=== PATIENT | male | born 1955 | race Caucasian/White ===

== ENCOUNTER 2018-01-18 16:00 | Outpatient (RCR) | payer BC, SELFPAY ==
--- NOTE | 2018-01-12 09:43 | R_ITS ---
Date: January 11, 2018 Referring: Kvng Felton MD Diagnosis: Trochanteric bursitis L hip and lumbago PT diagnosis: Difficulty changing positions Subjective: History of Present Illness: Pt returns to the clinic after experiencing a change in status. He was actually gone from the clinic due to receiving surgery with aortic repair and bilateral arterial bypass through the LEs. He had been having intermittent claudication through the LEs, and that then turned into constant arterial flow disorders. He was in constant pain, and it may have also been contributing to some of his hip pain as well. His activity tolerance was significantly reduced. He received the surgery and was in the hospital for a week and has since returned to some of his daily activities. He just recently had the justine removed and he returns to the clinic to see where he is at in terms of his functional status and to restart his therapy. Pain Ratin/10 mainly through the R hip. Prior Level of Function: Unrestricted in his activities but with significant pain that was limiting his involvement and duration in activity time. Current Level of Function: Walking with much more ease. Previous Treatment: PT before surgery. Social: He lives in [place] with his . Comorbidities: History of hypertension, new recent surgery for aortic repair and bilateral arterial bypass in the LEs. History of shoulder surgery. Medications: Have been reviewed. You can observe EMR for full details. QOL: Good. Standardized Measures: Was not completed in lieu of actual standardized testing , which is much more applicable for this pt demographic. Objective: Posture: In standing pt demonstrates no significant postural abnormality. Gait: Unremarkable, other than a slight antalgia through the R side attributed to some of his latent hip pain. Palpation: Mild tenderness to palpation through the surgical incision area. He has an 11 in. incision running the course of his abdomen and 2 bilateral incisions through the top of the medial aspect of the hip running down the anterior of the thigh. They are all well healed, approximated edges. No sign of erythema. An SFMA top tier assessment was completed. Dysfunctional nonpainful pattern through shoulder UE 1, UE 2 patterns, multi-segmental extension arms down deep squat and single leg stance. ROM: Measurements for this pt are as follows: Hip flexion 120 degrees flexion bilaterally IR 35 degrees rotation bilaterally ER 45 degrees bilaterally Hip abduction 45 degrees bilaterally Knee extension WNL Knee flexion WNL. Strength: Measurements for this pt are as follows: Hip flexion 4+/5 bilaterally Quads 5/5 Hamstrings 5/5 Dorsiflexion 5/5 Plantar flexion 5/5 Glute medius 4/5 bilaterally Neuro: Pt intact to light touch and sensation through UE and LE dermatomes. Motor control appears intact through associated myotomes and pt demonstrates appropriate proprioception and kinesthetic awareness. Special Tests: 6 min walk test pt traveled 1196 ft. 30 sec. sit to stand he completed 15 reps. 8 lb. arm curl test pt completes 19 reps bilaterally. Treatment: Re-evaluation only as this was done as a means to gauge his functional level prior to re-instating his therapeutic protocol. Treatment Time: 30 min direct pt care Assessment: Pt is a 62 yo male with a history of good physical health. He has initially been referred to PT with a diagnosis of troch bursitis at the L hip and also lumbago.He presents today with signs and symptoms consistent with being s/p aortic repair and bilateral arterial bypass through the LE's, on top of his existing PT diagnosis of mechanical derangement and dysfunction through the L hip. This is evidenced by the following impairment level findings: 6 min. 1196 ft, 15 reps for 30 sec. sit to stand, 19 reps through use of arm curl test of 8 lbs. and he is having some weakness through the gluteals at 4/5. These are contributing to the following functional limitations: mild deficits with long distance walking. Pt assessed as LOW complexity [id number] based on the following: History: recent arterial surgery, shoulder surgery, high blood pressure. Examination: 1196 ft. 6 min walk test distance, 15 reps. 30 sec. sit to stand , 19 reps. 30 sec. arm curl test with 8 lbs, weakness through gluteals with 4/5 strength bilaterally. Presentation: Stable. Decision making: Low based on the battery of standardized measures that were taken that indicated pt is at a good functional status right now. He definitely has some slight decline in what would be considered normal for his age demographic. PT services are required for this pt in order to address and remediate his functional limitations and return him to premorbid level of function. Pt prognosis appears to be good as evidence suggests improvement of functional mobilities with compliance to a detailed HEP tailored to his diagnosis and following through with PT intervention. STG: Patient to demonstrate the following in 2 weeks: 1. Pt will be independent in HEP both verbally and with ideal technique demonstration. LTG: Patient to demonstrate the following in 6 weeks: 1. Pt able to walk a mile within 20 min. with normalized gait mechanics and no evidence of pain. Plan: Patient to be seen 1 times per week for 6 weeks, with tapering visits as symptoms improve. Interventions will mainly consist of therapeutic exercise providing tactile cues, verbal education and advanced movement correctives for establishing muscle symmetry and improved stability and motor control through the core and pelvic girdle, as well as improved cardiovascular conditioning. Manual therapy will be utilized for enhancing muscle extensibility and improving joint arthrokinematics. Ultrasound and e-stim available for pain modulation as necessary. The pt will be monitored for compliance to HEP and pts status will be updated accordingly. Plan may be modified as symptoms dictate. YANNI/keith
--- NOTE | 2018-01-18 17:01 | PTTR_ITS ---
DATE: 01/18/18 SUBJECTIVE: I am doing pretty well for the most part. OBJECTIVE: Therapeutic procedures ([id number]). * X HEP review: Technique review and corrective modification where appropriate. * X See flow sheet: Patient tolerated treatment well with corrective instruction * X Provided skilled instruction in proper exercise performance: [] * X Provided skilled manual cues to facilitate proper muscle recruitment and/ or movement pattern: [] Direct treatment time: 30 minutes of direct patient care.
== END 2018-01-19 23:59 | disposition home or self-care (01) ==
LOC: PT 16:00
PROVIDERS: PCP Family Medicine; Referring Provider Family Medicine; Visit Provider Family Medicine
DX: M25.552 Pain in left hip (principal); M54.5 Low back pain; M79.89 Other specified soft tissue disorders
CPT/HCPCS: 97110; 97164

== ENCOUNTER 2018-10-23 01:56 | Outpatient (CLI) | payer BC, SELFPAY ==
[2018-10-23 07:23] LABS: HCT 47.7 % (40.0-50.0); HGB 16.3 g/dL (13.5-17.5); Mean Corp. HGB Concentration 34.2 g/dL (32.0-36.0); Mean Corpuscular Volume 99.4 fL (80-95); Mean Platelet Volume 9.1 fL (8.0-11.0); Platelet Count 146 x1000/uL (130-400); RBC Distribution Width 13.3 % (11.8-14.1); White Blood Cell Count 6.84 k/cumm (4.4-10.8)
[2018-10-23 07:55] LABS: ALT 25 U/L (12-78); AST 16 U/L (15-37); Albumin 4.2 g/dL (3.4-5.0); Alkaline Phosphatase 66 U/L (46-116); Anion Gap 10.1 mmol/L (3-11); BUN 17 mg/dL (7-18); Bilirubin, Total 0.9 mg/dL (0.2-1.0); CO2 26.9 mmol/L (21.0-32.0); CREATININE 1.08 mg/dL (0.70-1.30); Calculated LDL 69; Chloride 103 mmol/L (98-107); Cholesterol 156 mg/dL (50-200); Glucose 108 mg/dL (70-100); HDL Cholesterol 53 mg/dL (40-60); Sodium 140 mmol/L (136-145); Total Protein 7.3 g/dL (6.4-8.2); Triglyceride 171 mg/dL (30-150)
[2018-10-23 08:04] LABS: C-Reactive Protein 0.07 mg/dL (0.0-0.3)
[2018-10-24 11:41] LABS: Rheumatoid Factor 8 IU/mL (<12.5)
== END 2018-10-23 02:16 ==
PROVIDERS: PCP Family Medicine; Visit Provider Family Medicine
DX: E78.5 Hyperlipidemia, unspecified (principal); I10 Essential (primary) hypertension; M19.049 Primary osteoarthritis, unspecified hand
CPT/HCPCS: 36415; 80053; 80061; 83721; 85027; 86140; 86431

== ENCOUNTER 2019-11-18 20:40 | Outpatient (REF) | payer BC, SELFPAY ==
[2019-11-18 21:41] LABS: ALT 53 U/L (16-63); AST 33 U/L (15-37); Albumin 4.2 g/dL (3.4-5.0); Alkaline Phosphatase 50 U/L (46-116); BUN 15 mg/dL (7-18); Bilirubin, Total 0.6 mg/dL (0.2-1.0); CREATININE 1.06 mg/dL (0.70-1.30); Calcium 9.1 mg/dL (8.5-10.1); Calculated LDL 40 mg/dL (<100); Chloride 104 mmol/L (98-107); Cholesterol 97 mg/dL (<200); Glucose 130 mg/dL (74-106); HDL Cholesterol 36 mg/dL (40-60); Potassium 3.5 mmol/L (3.5-5.1); Sodium 140 mmol/L (136-145); Total Protein 6.9 g/dL (6.4-8.2); Triglyceride 107 mg/dL (<150)
== END 2019-11-18 21:00 ==
LOC: LBN 20:40
PROVIDERS: PCP Family Medicine; Visit Provider Family Medicine
DX: Z00.00 Encounter for general adult medical examination without abnormal findings (principal); Z13.228 Encounter for screening for other metabolic disorders; Z13.220 Encounter for screening for lipoid disorders
CPT/HCPCS: 80053; 80061

== ENCOUNTER 2020-05-19 00:59 | Outpatient (CLI) | payer BC, SELFPAY ==
--- NOTE | 2020-05-19 07:54 | DI.RAD_ITS ---
EXAM: XR HIP PELVIS ADULT BL CLINICAL HISTORY: bilat hip pain,m25.552,m25.551. TECHNIQUE: 2D digital imaging was performed. COMPARISON: No exams were available for comparison FINDINGS: Hardware is noted in the lower lumbar spine. Laminectomy defect is seen at L5. The hip joint spaces are well maintained. No significant periarticular spurring. Vascular calcifications are seen.. IMPRESSION: Unrmarkable radiographs of bilat hips. Postsurgical changes in the lower lumbar spine. DATA REPOSITORY: RADIATION DOSE DELIVERED:
--- NOTE | 2020-05-20 16:13 | CHAPLAIN ---
I visited with Gregg as he was getting ready to be discharged. He said his PCP suggested he come an get checked out because of chest pains. He's waiting for his to pick him up.
== END 2020-05-19 01:19 ==
PROVIDERS: PCP Family Medicine; Visit Provider Physician Assistant
DX: M25.551 Pain in right hip (principal); M25.552 Pain in left hip
CPT/HCPCS: 73521

== ENCOUNTER 2020-05-19 11:34 | Observation (INO) | payer BC, SELFPAY ==
[2020-05-19] VITALS (85 sets, daily range): BP systolic 111–176; BP diastolic 49–122; PULSE 51–90; RESP 12–23; TEMP 36.6–37.2; O2SAT 91–100
--- NOTE | 2020-05-19 11:30 | RT.EKG_ITS ---
APPROVED REPORT Exam: Resting ECG Patient Location: E HR:65 bpm ECG Measurements Heart Rate 65 AXIS GA 175 P -15 QRSd 105 QRS 12 QT 397 T -1 QTc 414 Conclusion Sinus rhythm...normal P axis, V-rate 60- 99 Inferior infarct, old...Q >35mS, II III aVF Physician: Rate 65, intervals normal, sinus rhythm, no significant ST elevations or depressions, ther e is new inverted T wave in lead III and a Q wave in lead III and aVF. Unchanged from prior EKG in 2 015 aside for slight increasing height of QRS complex in V3 and V4 and V5 compared to prior EKGs. No signs of STEMI.
[2020-05-19] MEDS: nitroGLYcerin 0.4 MG TAB (11:52)
--- NOTE | 2020-05-19 11:52 | W.ED.GENAD ---
Discharge Plan Disposition Patient Disposition: [facility] INPATIENT Condition: Good Discharge Details Chief Complaint: Chest Pain Clinical Impression: Chest pain, Chest pain, exertional Primary Care Provider: Kvng Felton ED Provider: Crow Sparks Home Meds and New Rx's Prescriptions: No Action fluticasone propionate [Flonase Allergy Relief] 50 mcg/actuation spray,suspension 1 spray BECKY DAILY RF: 0 acetaminophen [Tylenol Extra Strength] 500 MG tablet 500 mg PO TID RF: 0 metoprolol tartrate 50 mg tablet 25 mg PO BID RF: 0 atorvastatin [Lipitor] 20 mg tablet 80 mg PO DAILY RF: 0 aspirin 81 mg Tablet 81 mg PO DAILY RF: 0 Medical Decision Making 65-year-old female with a past medical history of a quadruple bypass around 2014, GERD, hypertension, high cholesterol, chronic kidney disease, aorto bifemoral bypass, notable peripheral artery disease presents today for evaluation of chest pain and shortness of breath. Patient states that starting yesterday while doing some light electrical work he developed mild chest pressure which she describes as achy in nature as well as dull. Chronic left arm pain is present however it is unchanged with his new chest pain. He denies any tearing or ripping sensation. He does admit to an intermittent cough, but he does admit some mild shortness of breath. Patient states when he gets up walks around and performs activities it worsens his symptoms, improves when he sits and rest. He states his symptoms feel similar to his previous episodes when he had his quadruple bypass. He denies any numbness tingling or weakness. He denies any trauma. He has not smoked for years. He denies any fever or chills. No other complaints at this time. No other modifying factors. Patient appears hypertensive, heart rate stable. Radial pulses equal bilaterally. No significant abnormalities on physical exam, no calf tenderness. EKG shows no signs of STEMI, unchanged from prior EKG of 5 for slight evidence of ventricular hypertrophy. Nitroglycerin was administered and he had notable improvement of his symptoms, symptoms came back shortly thereafter and he was started on nitroglycerin drip. Do feel that the patient would benefit from cardiac evaluation, with his history of AAA, peripheral vascular disease, I do feel that PE and more importantly mild dissection is also on the differential. We will get CTA once labs return. Additionally the patient did take 3 baby aspirin prior to arrival, we will give him his fourth. 3:55 PM Laboratory work-up has returned, serial troponins and serial EKGs are normal, pain has resolved on the nitro drip, we will transition to nitro ointment. No signs of heart strain with an unremarkable proBNP, electrolytes normal. CTA negative for acute process. With the patient's chest pain, resolved with nitroglycerin, history of cardiac disease, CABG, and is history of being a vasculopath, I do feel that continued admission and stress test are indicated for the patient with this high risk and concerning history. Discussed the case with Katlyn Wilder, she agrees with the plan. She will place admission orders. Patient will be admitted to the floor. I have extensively reviewed the treatment plan with the patient. I have addressed all patient concerns at this time. I have also discussed the plan with the admitting physician and they agree with the current assessment and plan and have agreed to assume responsibility for the patient. All parties demonstrate verbal understanding and agreement with our assessment and plan at this time. EKG 11: 46 Rate 65, intervals normal, sinus rhythm, no significant ST elevations or depressions, there is new inverted T wave in lead III and a Q wave in lead III and aVF. Unchanged from prior EKG in 2015 aside for slight increasing height of QRS complex in V3 and V4 and V5 compared to prior EKGs. No signs of STEMI. FINDINGS: Pulmonary Arteries: Well opacified with IV contrast no evidence of filling defect to suggest pulmonary emboli. Tracheobronchial tree: Patent where visualized. Mediastinum and Dayna: No dominant adenopathy or fluid collection. Pulmonary parenchyma: No consolidation or dominant measurable mass. Pleura: No effusion or pneumothorax. Heart: The heart is mildly dilated. coronary artery calcifications are seen. Status post CABG. Aorta: Atherosclerotic changes. No evidence of dissection. 4 cm maximal diameter. Upper abdomen: Hepatic steatosis. Question of small hiatal hernia. Bones: Sternal wires. Degenerative disc changes. Old right rib fractures. No acute fracture. IMPRESSION: No evidence of pulmonary embolism or aortic dissection. No acute abnormality.. HPI General Date/Time Provider Initiated Documentation: 05/19/20 11:35. HPI Narrative: 65-year-old female with a past medical history of a quadruple bypass around 2014, GERD, hypertension, high cholesterol, chronic kidney disease, aorto bifemoral bypass, notable peripheral artery disease presents today for evaluation of chest pain and shortness of breath. Patient states that starting yesterday while doing some light electrical work he developed mild chest pressure which she describes as achy in nature as well as dull. Chronic left arm pain is present however it is unchanged with his new chest pain. He denies any tearing or ripping sensation. He does admit to an intermittent cough, but he does admit some mild shortness of breath. Patient states when he gets up walks around and performs activities it worsens his symptoms, improves when he sits and rest. He states his symptoms feel similar to his previous episodes when he had his quadruple bypass. He denies any numbness tingling or weakness. He denies any trauma. He has not smoked for years. He denies any fever or chills. No other complaints at this time. No other modifying factors. Related Data Home Medications Medication Instructions Recorded Confirmed acetaminophen [Tylenol Extra 500 mg PO TID 09/01/17 05/19/20 Strength] atorvastatin 20 mg tablet 80 mg PO DAILY tab 10/17/18 05/19/20 metoprolol tartrate 50 mg tablet 25 mg PO BID tab 10/17/18 05/19/20 fluticasone propionate 50 1 spray BECKY DAILY 11/18/19 05/19/20 mcg/actuation nasal spray,suspension aspirin 81 mg PO DAILY 05/19/20 05/19/20 Allergies Allergy/AdvReac Type Severity Reaction Status Date / Time No Known Allergies Allergy Verified 05/19/20 12:02 Review of Systems All systems reviewed & are unremarkable except as noted in HPI and below PFSH Surgical History DISKECTOMY LAMINECTOMY,DISKECTOMY,ARTHRODESIS WITH BONE GRAFT;11/06/13; Heart Bypass quadruple 01/03 [facility] [place] L2 LAMINECTOMY 10/30/13 DR. MENDOZA AT ;FOR STENOSIS DECOMPRESSION Rotator Cuff Repair (~07/2016) LEFT SHOULDER Spinal Fusion L 4-5 LAMONECTOMY AND FUSION 04/22/09 DR. LIU Tonsillectomy AGE 7 Family History Mother No problems noted. Father , 68 Essential hypertension Heart disease Hyperlipidemia Sister No problems noted. Brother No problems noted. Brother Hypertension Hyperlipidemia Maternal Grandfather , 70+ No problems noted. Paternal Grandfather , 50 Alcohol abuse Maternal Grandmother , 90+ No problems noted. Paternal Grandmother , 90+ No problems noted. Son No problems noted. Son No problems noted. Daughter No problems noted. Daughter No problems noted. Social History Smoking/Tobacco Use Status: Current-Occasional Tobacco: How many years used: 25 Smoking risk assessment performed?: Yes Alcohol Intake: current Alcohol Intake frequency: 0-2 drinks per day Alcohol type: hard liquor Drug use: Rarely Substance use type: does not use Caregiver/Support person: No Household members: spouse Housing: house Communication Needs: None Do you need help understanding health information?: Never Pets and animals: Yes Pets and animals: cat(s) Sexually active: Yes Do you think of yourself as: straight/heterosexual Current gender identity: male What is your relationship status?: How often do you talk on the phone with friends or family?: twice per week How often do you get together with friends or relatives?: once per week How often do you attend rastafarian or sikh services?: 1-3 times per year Do you belong to any clubs or organized social groups?: no Panel score (0-1 are the most socially isolated patients): 2 What type of physical activity do you participate in: walking Duration: 30-45 minutes/day Frequency: 1-2 times per week Adriana/Baptism: Episcopalian Special adriana needs: No Seatbelt use: sometimes Helmet use: Yes Helmet use: always Drive intox or ride w/intox mobile lounge driver: No Do you feel safe at home: Yes Do you feel safe in your relationship?: Yes Exam Narrative Exam Narrative: 1.Const: Well-nourished, Well-developed, appearing stated age 2.Eyes: PERRL, no conjunctival injection, and symmetrical lids. 3.ENT: Atraumatic external nose and ears. Moist MM. Neck: Symmetric, trachea midline, No thyromegaly. 4.CVS: +S1/S2, No murmurs or gallops. Peripheral pulses 2+ and equal in all extremities. Brisk capillary refill in all extremities. Radial pulses +2 bilaterally. 5.RESP: Unlabored respiratory effort. Clear to auscultation bilaterally. No wheezes rales or rhonchi 6.GI: Soft, Nontender/Nondistended, No hepatosplenomegaly. No guarding or rebound. 7.MSK: Normocephalic/Atraumatic, Extremities w/o deformity or ttp No cyanosis or clubbing, Normal movement of all extremities, no calf tenderness. 8.Skin: Warm, Dry. No rashes or lesions. 9.Neuro: x ray tech II-XII grossly intact. Sensation grossly intact, no focal neurologic deficits. 10.Psych: (AAO) x3. Appropriate mood and affect
[2020-05-19 12:03] LABS: Abs Immature Grans 0.04 10^3/uL (0.0-0.06); Absolute Basophil Count 0.08 10^3/uL (0.0-0.2); Absolute Eosinophil Count 0.01 10^3/uL (0.0-0.7); Absolute Lymphocyte Count 1.75 10^3/uL (1.2-3.4); Absolute Neutrophil Count 4.59 10^3/uL (1.2-6.7); Basophils % 1.1; Eosinophils % 0.1; HCT 45.2 % (40.0-50.0); HGB 15.4 g/dL (13.5-17.5); Immature Grans % 0.6; Lymphocytes % 24.4; MCH 34.5 pg (27.0-33.0); MCHC 34.1 % (32.0-36.0); MCV 101.1 fL (80-95); Monocytes % 9.8; Nucleated RBC 0 %; Platelet Count 134 10^3/uL (130-400); RBC 4.47 10^6/uL (4.36-5.78); RDW 12.3 % (11.8-14.1); RDW-SD 46.3 fL; WBC 7.17 10^3/uL (4.4-10.8)
[2020-05-19 12:19] LABS: PTT Activated 21.4 sec (21.0-27.5); Prothrombin Time 10.5 sec (9.3-11.0)
[2020-05-19] MEDS: Aspirin 81 MG CHEW CH (12:20)
[2020-05-19 12:23] LABS: ALT 82 U/L (16-63); AST 69 U/L (15-37); Albumin 4.9 g/dL (3.4-5.0); Alkaline Phosphatase 54 U/L (46-116); Anion Gap 14.7 mmol/L (3-11); BUN 14 mg/dL (7-18); Bilirubin, Total 0.9 mg/dL (0.2-1.0); CO2 25.3 mmol/L (21.0-32.0); CREATININE 1.14 mg/dL (0.70-1.30); Chloride 98 mmol/L (98-107); Glucose 82 mg/dL (74-106); NT-proBNP 446 pg/mL (<300); Potassium 3.8 mmol/L (3.5-5.1); Sodium 138 mmol/L (136-145); Troponin I < 0.05 ng/mL (<0.06)
[2020-05-19] MEDS: Omnipaque 350 MG/ML 100 ML BTL IJ (13:11)
[2020-05-19] MEDS: Normal Saline - Diluent 50 ML VIAL IV (13:12)
--- NOTE | 2020-05-19 13:16 | DI.CT_ITS ---
EXAM: CT THORAX CTA CLINICAL HISTORY: chest pain, r/o PE/dissection. TECHNIQUE: Imaging Protocol: Axial CT angiography was performed with multi-slice acquisition and mu lti-planar and/or 3D reconstructions. CONTRAST MATERIAL: Intravenous: Omnipaque 350 Contrast volume:100 ml COMPARISON: No exams were available for comparison FINDINGS: Pulmonary Arteries: Well opacified with IV contrast no evidence of filling defect to suggest pulmonar y emboli. Tracheobronchial tree: Patent where visualized. Mediastinum and Dayna: No dominant adenopathy or fluid collection. Pulmonary parenchyma: No consolidation or dominant measurable mass. Pleura: No effusion or pneumothorax. Heart: The heart is mildly dilated. coronary artery calcifications are seen. Status post CABG. Aorta: Atherosclerotic changes. No evidence of dissection. 4 cm maximal diameter. Upper abdomen: Hepatic steatosis. Question of small hiatal hernia. Bones: Sternal wires. Degenerative disc changes. Old right rib fractures. No acute fracture. IMPRESSION: No evidence of pulmonary embolism or aortic dissection. No acute abnormality.. RADIATION DOSE DELIVERED: 358.54mGy.cm Total DLP DATA REPOSITORY: All CT scans at this facility are submitted to the National Radiology Data Registry (NRDR) Dose Index Registry (DIR) with the [employer] (ACR). RADIATION OPTIMIZATION: All CT scans at this facility use at least one of these dose optimization te chniques: automated exposure control; mA and/or kV adjustment per patient size (includes targeted exa ms where dose is matched to clinical indication); or iterative reconstruction.
--- NOTE | 2020-05-19 14:45 | RT.EKG_ITS ---
APPROVED REPORT Exam: Resting ECG Patient Location: E HR:58 bpm ECG Measurements Heart Rate [address] 191 P -21 QRSd 95 QRS 14 QT 420 T 5 QTc 413 Conclusion Sinus bradycardia...rate< 60 Inferior infarct, old...Q >35mS, II III aVF I have reviewed and interpreted ECG and agree with software generated interpretation. PHysician: Allison rodriguez, unchanged from prior ekg
[2020-05-19 15:15] LABS: Troponin I < 0.05 ng/mL (<0.06)
[2020-05-19] MEDS: nitroGLYcerin 2% 1 INCH/1 GM PKT TP ×3 (15:32→23:40)
--- NOTE | 2020-05-19 16:54 | HPE_ITS ---
Date of service: 05/19/20 Time of Service: 16:54 Assessment and Plan Assessment and plan (1) Chest pain: Status: Acute Assessment and plan: referred to observation. cycle troponins, 2 sets negative now with no acute ST segment changes responded to nitro, will continue nitro paste overnight due to stress component will add protonix and prn ativan overnight NM stress test scheduled for tomorrow morning, will be NPO after midnight. hold betablocker. (2) CAD (coronary artery disease): Status: Acute Assessment and plan: continue asa and statin, BB on hold d/t stress test scheduled for am (3) Essential hypertension: Status: Acute Assessment and plan: will resume BB after stress test, monitor (4) Hyperlipidemia: Status: Acute Assessment and plan: continue statin (5) Emotional Distress: Status: Acute Assessment and plan: ativan prn overnight. ambien and melatonin for sleep. long history of alcohol abuse. discussed with DR Mckeon History of Present Illness History of Present Illness Chief Complaint: chest pain Narrative: patient presents to the ED with a 2 day history sub-sternal chest pressure, states he has had a lot of stress all week, he reports he has not had any chest pain since his bypass in 2014. he received nitroglycerin in the ED that relieved his pain. he has had 2 negative troponins and no acute EKG changes. he is being referred to observation and will have a stress test tomorrow Review of Systems Constitutional Constitutional: Reports difficulty sleeping and Denies fever(s) Eyes Eyes: Denies change in vision ENT Ears, Nose, Mouth, and Throat: Denies vertigo and Denies dizziness Cardiovascular Cardiovascular: Reports chest pain, Denies rapid heart rate and Denies leg edema Respiratory Respiratory: Denies chest congestion and Denies cough Gastrointestinal Gastrointestinal: Denies abdominal pain, Denies nausea and Denies vomiting Genitourinary Genitourinary: Denies difficulty urinating Integumentary/Breasts Skin/Breast: Denies lesions Neurologic Neurologic: Denies confusion, Denies vertigo and Denies dizziness Psychiatric Psychiatric: Reports anxiety, Denies confusion, Denies homicidal ideation and Denies suicidal ideation Comments: lots of recent stress-this week [facility] Surgical History DISKECTOMY LAMINECTOMY,DISKECTOMY,ARTHRODESIS WITH BONE GRAFT;11/06/13; Heart Bypass quadruple 01/03 [facility] [place] L2 LAMINECTOMY 10/30/13 DR. MENDOZA AT ;FOR STENOSIS DECOMPRESSION Rotator Cuff Repair (~07/2016) LEFT SHOULDER Spinal Fusion L 4-5 LAMONECTOMY AND FUSION 04/22/09 DR. LIU Tonsillectomy AGE 7 Family History Mother No problems noted. Father , 68 Essential hypertension Heart disease Hyperlipidemia Sister No problems noted. Brother No problems noted. Brother Hypertension Hyperlipidemia Maternal Grandfather , 70+ No problems noted. Paternal Grandfather , 50 Alcohol abuse Maternal Grandmother , 90+ No problems noted. Paternal Grandmother , 90+ No problems noted. Son No problems noted. Son No problems noted. Daughter No problems noted. Daughter No problems noted. Social History Smoking/Tobacco Use Status: Current-Occasional Tobacco: How many years used: 25 Smoking risk assessment performed?: Yes Alcohol Intake: current Alcohol Intake frequency: 0-2 drinks per day Alcohol type: hard liquor Drug use: Rarely Substance use type: does not use Caregiver/Support person: No Household members: spouse Housing: house Communication Needs: None Do you need help understanding health information?: Never Pets and animals: Yes Pets and animals: cat(s) Sexually active: Yes Do you think of yourself as: straight/heterosexual Current gender identity: male What is your relationship status?: How often do you talk on the phone with friends or family?: twice per week How often do you get together with friends or relatives?: once per week How often do you attend protestant or mandaen services?: 1-3 times per year Do you belong to any clubs or organized social groups?: no Panel score (0-1 are the most socially isolated patients): 2 What type of physical activity do you participate in: walking Duration: 30-45 minutes/day Frequency: 1-2 times per week Adriana/Rastafari: Cheondoism Special adriana needs: No Seatbelt use: sometimes Helmet use: Yes Helmet use: always Drive intox or ride w/intox haulpak driver: No Do you feel safe at home: Yes Do you feel safe in your relationship?: Yes Meds Home Medications and Allergies Home Medications Medication Instructions Recorded Confirmed Type acetaminophen [Tylenol Extra 500 mg PO TID 09/01/17 05/19/20 History Strength] atorvastatin 20 mg tablet 80 mg PO DAILY tab 10/17/18 05/19/20 History metoprolol tartrate 50 mg tablet 25 mg PO BID tab 10/17/18 05/19/20 History fluticasone propionate 50 1 spray BECKY DAILY 11/18/19 05/19/20 History mcg/actuation nasal spray,suspension aspirin 81 mg PO DAILY 05/19/20 05/19/20 History Allergies Allergy/AdvReac Type Severity Reaction Status Date / Time No Known Allergies Allergy Verified 05/19/20 12:02 Exam Const General: cooperative, anxious, ill appearing chronically and other (flushed face) Nutritional Appearance: overweight Orientation: alert, awake and oriented x3 HENMT Head: normal to inspection, normocephalic and atraumatic Mouth: oral mucosae normal Chest Chest: normal inspection of the chest Resp Effort & Inspection: normal respiratory effort Auscultation: clear to auscultation bilaterally Cardio Rate: regular rate Rhythm: regular rhythm GI Inspection: normal to inspection Palpation: soft Auscultation: normal bowel sounds Skin General skin exam: no rashes or lesions noted Lesions: no lesions Rashes: no rashes Neuro General: patient alert, patient awake, patient oriented x3 and moves all extremities Cranial Nerves: CN's II-XI intact bilaterally Extrem General: normal to inspection and full ROM Results Labs Result diagrams: 05/19/20 11:50 05/19/20 11:50 Labs: Laboratory Results - last 24 hr 05/19/20 05/19/20 05/19/20 11:50 11:50 11:50 WBC 7.17 RBC 4.47 Hgb 15.4 Hct 45.2 MCV 101.1 H MCH 34.5 H MCHC 34.1 RDW 12.3 Plt Count 134 MPV 9.0 Immature Gran % 0.6 Neutrophils % 64.0 Lymphocytes % 24.4 Monocytes % 9.8 Eosinophils % 0.1 Basophils % 1.1 Nucleated RBC % 0 Absolute Neutrophils 4.59 Absolute Lymphocytes 1.75 Absolute Monocytes 0.70 Absolute Eosinophils 0.01 Absolute Basophils 0.08 PT 10.5 INR 1.0 APTT 21.4 Sodium 138 Potassium 3.8 Chloride 98 Carbon Dioxide 25.3 Anion Gap 14.7 H BUN 14 Creatinine 1.14 Estimated GFR/1.73 m2 >= 60.00 Glucose 82 Calcium 10.0 Total Bilirubin 0.9 AST 69 H ALT 82 H Alkaline Phosphatase 54 Troponin I < 0.05 NT-Pro-B Natriuret Pep 446 H Total Protein 8.0 Albumin 4.9 05/19/20 14:47 WBC RBC Hgb Hct MCV MCH MCHC RDW Plt Count MPV Immature Gran % Neutrophils % Lymphocytes % Monocytes % Eosinophils % Basophils % Nucleated RBC % Absolute Neutrophils Absolute Lymphocytes Absolute Monocytes Absolute Eosinophils Absolute Basophils PT INR APTT Sodium Potassium Chloride Carbon Dioxide Anion Gap BUN Creatinine Estimated GFR/1.73 m2 Glucose Calcium Total Bilirubin AST ALT Alkaline Phosphatase Troponin I < 0.05 NT-Pro-B Natriuret Pep Total Protein Albumin Last Vital Signs Temp 37.2 C 05/19/20 16:51 Pulse 87 05/19/20 16:51 Resp 18 05/19/20 16:51 BP 166/93 H 05/19/20 16:51 Pulse Ox 97 05/19/20 16:51 COVID-19 Screening Have you, or household traveled for leisure in last 14 days?: No Had IN PERSON contact w/suspected or confirmed C-19 person: No
[2020-05-19] MEDS: LORazepam 0.5 MG TAB PO (17:42)
[2020-05-19] MEDS: Pantoprazole 40 MG VIAL IVP (17:42)
[2020-05-19] MEDS: Acetaminophen 325 MG TAB 650 MG PO (17:42)
[2020-05-19] MEDS: Normal Saline Flush 10 ML SYR (17:43)
[2020-05-19] MEDS: Atorvastatin 40 MG TAB 80 MG PO (21:17)
[2020-05-19] MEDS: Zolpidem 5 MG TAB PO (21:17)
[2020-05-19] MEDS: Melatonin 3 MG TAB PO (21:17)
[2020-05-19 22:00] LABS: COVID-19 RT-PCR UVMMC Result Negative (Negative)
[2020-05-19 22:29] LABS: Troponin I 0.05 ng/mL (<0.06)
[2020-05-20 06:42] LABS: Abs Immature Grans 0.02 10^3/uL (0.0-0.06); Absolute Basophil Count 0.04 10^3/uL (0.0-0.2); Absolute Eosinophil Count 0.07 10^3/uL (0.0-0.7); Absolute Lymphocyte Count 1.46 10^3/uL (1.2-3.4); Absolute Monocyte Count 0.77 10^3/uL (0.1-0.8); Absolute Neutrophil Count 4.25 10^3/uL (1.2-6.7); Basophils % 0.6; Eosinophils % 1.1; HGB 14.4 g/dL (13.5-17.5); Immature Grans % 0.3; Lymphocytes % 22.1; MCHC 34.3 % (32.0-36.0); MCV 101.9 fL (80-95); MPV 9.2 fL (8.0-11.0); Monocytes % 11.6; Neutrophils % 64.3; Nucleated RBC 0 %; Platelet Count 113 10^3/uL (130-400); RBC 4.12 10^6/uL (4.36-5.78); RDW 12.5 % (11.8-14.1); WBC 6.61 10^3/uL (4.4-10.8)
[2020-05-20 07:01] LABS: ALT 62 U/L (16-63); AST 43 U/L (15-37); Albumin 3.8 g/dL (3.4-5.0); Alkaline Phosphatase 48 U/L (46-116); Anion Gap 8.3 mmol/L (3-11); BUN 16 mg/dL (7-18); Bilirubin, Total 0.8 mg/dL (0.2-1.0); CO2 26.7 mmol/L (21.0-32.0); CREATININE 0.97 mg/dL (0.70-1.30); Calcium 8.8 mg/dL (8.5-10.1); Chloride 104 mmol/L (98-107); Glucose 106 mg/dL (74-106); Magnesium 1.8 mg/dL (1.8-2.4); Potassium 3.8 mmol/L (3.5-5.1); Sodium 139 mmol/L (136-145); Total Protein 6.7 g/dL (6.4-8.2); Troponin I < 0.05 ng/mL (<0.06)
[2020-05-20 07:10] VITALS: BP 130/81; PULSE 64; RESP 17; TEMP 37.2; O2SAT 97
[2020-05-20 07:25] VITALS: PULSE 80
--- NOTE | 2020-05-20 07:29 | DI.US_ITS ---
APPROVED REPORT EXAM: Comprehensive 2D, Doppler, and color-flow Echocardiogram Patient Location: In-Patient Room/Bed: [facility] Physical Therapy Technician: Maricruz Roa RDCS (AE) Indications: Chest pain, CAD, CABG Other Information Study Quality: Adequate Conclusion The left ventricular wall thickness and chamber size. Estimated ejection fraction is 55 to 60%. The re are no segmental wall motion abnormalities Normal right ventricular size and systolic function Both atria are normal in size Trileaflet aortic valve with trace regurgitation Structurally normal mitral, tricuspid, and pulmonic valves Trace mitral regurgitation. Mild tricuspid regurgitation with normal estimated right ventricular sys tolic pressure. Trace physiologic pulmonic regurgitation Mildly dilated ascending aorta measuring 3.9 cm Wall motion Left Ventricle The left ventricle is normal size. The left ventricular systolic function is normal. The left ventric ular ejection fraction is within the normal range. There is normal left ventricular wall thickness. T here is normal LV segmental wall motion. There is no ventricular septal defect visualized. LVEF is 55 -60%. Right Ventricle The right ventricle is normal size. The right ventricular systolic function is normal. The RVSP is 22 .4 mmHg. Atria The left atrium size is normal. The right atrium size is normal. The interatrial septum is intact wit h no evidence for an atrial septal defect. Aortic Valve The aortic valve is normal in structure. Aortic valve is trileaflet. There is no aortic valvular sten osis. No aortic regurgitation is present. Trace aortic regurgitation. Mitral Valve The mitral valve is normal in structure. No evidence of mitral valve stenosis. Trace mitral regurgita tion. Tricuspid Valve The tricuspid valve is normal in structure. There is no tricuspid valve stenosis. Mild tricuspid regu rgitation. Pulmonic Valve The pulmonary valve is normal in structure. There is no pulmonic valvular stenosis. Trace pulmonic re gurgitation. Great Vessels The aortic root is normal in size. The ascending aorta is moderately dilated.3.9 cm Aortic arch is no t well visualized. IVC is normal in size and collapses >50% with inspiration. Pericardium There is no pericardial effusion. 2D Dimensions IVSD d PLAX 1.01 cm M: 0.6-1.2 LV Vol A2C d MOD 101.4 mL LVPW d PLAX 1.02 cm M: 0.6 - 1.2 LV Vol A4C d MOD 117.4 mL LVID d PLAX 4.62 cm M: 4.2 - 5.8 LA vol/ BSA A2C s A-L 29.6 mL/m2 LVDs 3.50 cm M: 2.5 - 4.0 LA vol/ BSA A4C s A-L 19.0 mL/m2 Ao Root d 3.19 cm M: 3.1 - 3.7 LA Vol/ BSA Biplane s A-L 24.2 mL/m2 RA Area A4C 15.06 cm2 LA Area A4C s MOD 15.47 cm2 RA Vol/ BSA A4C s A-L 22.1 mL/m2 LA Area A2C s MOD 18.88 cm2 Ao Asc Diam d 3.90 cm M: 2.6 - 3.4 LV EF A4C MOD 55.6 % LV EF Teichholz 47.6 % LV EF A2C MOD 50.5 % LVEF (Daniels's) 52.16 % M: 52 - 72 LV EF Biplane MOD 52.2 % LV Volume 84.45 mL M: 62 - 150 SV 57.11 mL LV Volume Index 45.89 mL/m2 M: 34 - 74 SV Index 30.98 mL/m2 LV Vol Biplane MOD 109.5 mL FS 23.80 % M-Mode TAPSE 1.28 cm (M/F) >1.7 LV Diastology MV E' medial 0.057 (>0.07 m/s) E/A Ratio 0.6 LV E/e MED 8.40 (<14) MV E Vmax 0.48 (0.4-1.3 m/s) MV E' lateral 0.150 (>0.1 m/s) MV A Vmax 0.80 (0.4-1.3 m/s) LV E/e LAT 3.20 (<14) MV E/A Ratio 0.60 MV E/E' medial 8.45 MV E/E' lateral 3.20 Aortic Valve LVOT Area 3.19 cm2 AoV Area Vmax 2.38 cm2 LVOT Vmax 0.92 m/s AoV Area/ BSA (Vmax) 1.29 cm2/m2 LVOT Mean Olegario. 0.59 m/s AMRIT Mean Olegario. 2.08 cm2 LVOT Peak Grad 3.4 mmHg AMRIT Mean Olegario. Index 1.13 cm2/m2 LVOT Mean Grad 1.7 mmHg LVOT VTI 0.186 m LVOT Diam s 2.00 cm AoV Vmax 1.23 m/s Velocity Ratio 0.74 AoV Mean Olegario. 0.91 m/s AoV Peak Grad 6.1 mmHg LVOT SV 59.42 mL AoV Mean Grad 3.5 mmHg AoV VTI 0.233 m AoV Area VTI 2.55 cm2 AoV Area/ BSA (VTI) 1.38 cm/m2 Mitral Valve MV DT 311 (160-240 msec) MV PHT 90 msec MV Area PHT 2.44 cm2 Pulmonary Valve PV Vmax 1.03 (0.5-1.5 m/s) RVOT Peak Gr. 1.58 mmHg PV Peak Grad 4.2 mmHg RVOT Mean Gr. 0.70 mmHg PV Mean Grad 1.9 mmHg RVOT VTI 0.103 m PV VTI 0.171 m RVOT Vmax 0.63 m/s Tricuspid Valve TR Peak Grad 19.3 mmHg TR Vmax 2.20 m/s RA Pressure 3.00 mmHg RVSP (TR) 22.4 mmHg
[2020-05-20] MEDS: Aspirin E.C. 81 MG TABEC PO (08:33)
--- NOTE | 2020-05-20 08:45 | DI.NM_ITS ---
APPROVED REPORT Exam: Exercise Treadmill Patient Location: In-Patient Room/Bed: [facility] Stress Nurse: Ilene Donald RN BMI: 26.14 Baseline Rhythm: Sinus Rhythm Comment: inverted T wave in leads V1, V3, V4, V5, V6 Indications: Chest pain relieved with nitro. Medical History Medical History: HTN, ETOH use, CAD, HLD, PAD Cardiac Medications: Atorvastatin, Aspirin, Metoprolol tartrate Allergies: No known drug allergies Cardiac Risk Factors: HTN, Hyperlipidemia, FHX of CAD, Smoking (former), PVD, CVD Previous Cardiac Procedures: CABG in 2014 Pretest Chest Pain Characteristics: No chest pain Exercise History: Sedentary Physical Disabilities: None. Lung Sounds: Clear to auscultation Heart Sounds: Regular Stress Test Details Test: Exercise stress testing was performed using a Rambo protocol. Nuclear Acquisition: Rest Tc-99m/Stress Tc-99m 1 day Rest Isotope: Tc-99m Sestamibi. Dose: 11.5 Date: 05/20/2020 Injection Time: 0800 Stress Isotope: Tc-99m Sestamibi. Dose: 37.0 Date: 05/20/2020 Injection Time: 1030 HR Resting HR Supine: 69 bpm Max Heart Rate (APMHR): 157 bpm Resting HR Standin bpm Target HR (85% APMHR): 133 bpm Max HR Achieved: 185 bpm % of APMHR: 117 Recovery HR: 97 bpm HR response to stress: Normal HR response to stress BP Resting BP Supine: 166/82 mmHg Resting BP Standin/98 mmHg Max BP: 180/102 mmHg Recovery BP: 158/86 mmHg BP response to stress: Blunted blood pressure response to stress. ECG Resting ECG: Sinus Rhythm Ectopy: Occasional PVC. Comment: inverted T waves in leads V1, V3, V4, V5, V6 Stress ECG: Sinus Tachycardia ST Change: Horizontal ST depression Lead(s): V3, V4 Stage: [address] Deviation: 1 mm Arrhythmia: PVCs, couplets Recovery ECG: Sinus Rhythm, Sinus Tachycardia Recovery ST Change: Horizontal ST depression Lead(s): V3, V4, V5 Recovery ST Deviation: 1 mm Recovery Arrhythmia: PVCs Clinical Reason for Termination: Leg pain/Claudication Stress Symptoms: Leg Fatigue/Pain Exercise duration: 10 min12 sec Highest Stage Reached: Stage 4: 4.2 mph at 16% grade. Exercise capacity: 12.19 METs Stress ECG Conclusion 1. Resting electrocardiogram showed old inferior wall myocardial infarction, left ventricular hypertr ophy 2. Patient exercised on the Rambo protocol and completed a workload of 12 METS limited by leg fatigue 3. Normal heart rate and blood pressure response to exercise. The patient achieved greater than 100% of predicted heart rate for age 4. Electrocardiographically the test was consistent with myocardial ischemia with ST depression at pe ak exercise in leads V5 and V6, which resolved by minute 4 of recovery 5. Sporadic PVCs noted Stress Test Summary STAGE Time (mins) Speed (mph) Grade (%) HR BP SYMPTOMS METS Supine 69 166/82 Standing 86 178/98 1 3 1.7 10 121 4.6 2 6 2.5 12 138 7 3 9 3.4 14 164 10.2 1 min recovery 167 180/102 3 min recovery 130 180/82 6 min recovery 104 166/82 9 min recovery 103 158/86 MPI Conclusion No significant myocardial ischemia identified Inferior wall demonstrates predominant infarction with minimal superimposed ischemia
--- NOTE | 2020-05-20 09:52 | PDOC.CMIN ---
- If Service Date Differs Date of service: 05/20/20 Time of Service: 09:52 Care Management Initial Assess REASON FOR HOSPITALIZATION:: Chest Pain PAST MEDICAL HISTORY/PAST SURGICAL HISTORY:: Surgical History . DISKECTOMY. LAMINECTOMY,DISKECTOMY,ARTHRODESIS WITH BONE GRAFT;11/06/13; . Heart Bypass quadruple. 01/03 [facility] [place]. L2 LAMINECTOMY. 10/30/13 DR. MENDOZA AT ;FOR STENOSIS DECOMPRESSION. Rotator Cuff Repair (~07/2016). LEFT SHOULDER. Spinal Fusion. L 4-5 LAMONECTOMY AND FUSION 04/22/09 DR. LIU. Tonsillectomy. AGE 7 PREVIOUS FUNCTIONAL STATUS/SOCIAL/FAMILY SUPPORTS:: Suresh lives in [place] with his Katie. 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 He has 4 children and his has 2. CURRENT FUNCTIONAL STATUS:: suresh was fully dressed and ready for discharge when CM met with him. He shared that all of his test results were good and that he was happy to be going home. ADVANCE DIRECTIVES:: None on file. will discuss with PCP at later date Has patient been provided with info about the portal/API?: Yes Did the patient sign up for the portal?: Yes (previously) CODE STATUS:: Full Code INSURANCE COVERAGE / FINANCIAL ISSUES:: BC BS CURRENT HOME/COMMUNITY SERVICES/EQUIPMENT:: none PRIMARY CARE PHYSICIAN:: Kvng Franco POTENTIAL DISCHARGE NEEDS:: Follow up with Cardiology, PCP and plan of care PATIENT/FAMILY EDUCATION NEEDS:: Discharge plan and follow up, limitations. Ask Me Three TRANSPORTATION:: vial private vehicle with family PLAN:: Suresh will be discharged with no new services. He will follow up with his PCP and discharge plan of care and transport with family.
--- NOTE | 2020-05-20 11:05 | DSE_ITS ---
Date of service: 05/20/20 Time of Service: 13:15 DS: Diagnosis Discharge Diagnosis (1) Chest pain: Status: Acute (2) CAD (coronary artery disease): Status: Acute (3) Essential hypertension: Status: Acute (4) Hyperlipidemia: Status: Acute (5) Emotional Distress: Status: Acute Discharge Plan Disposition Patient Disposition: HOME Condition: Good Discharge Details Reason For Visit: CHEST PAIN Admit Date/Time: 05/19/20 15:25 Admit Provider: Antonio Mckeon Attending Provider: Antonio Mckeon Primary Care Provider: Kvng Felton Hospital Course Hospital Course: This is a 65 year old male, s/p CABG in 2015, followed by [facility] cardiology who presented to the ED for several days of substernal chest pain that was relieved nitro, serial troponins negative, no acute ST segment changes on EKG. he was referred to observation for monitoring and stress testing. he had no further chest pain while hospitalized, he reports increased significant stress at home. His echo and stress test both unremarkable. He will be discharged to home with no changes to his medication and follow up with cardiology. discharge discussed with DR Mckeon Home Meds and New Rx's Prescriptions: Continued fluticasone propionate [Flonase Allergy Relief] 50 mcg/actuation spray,suspension 1 spray BECKY DAILY RF: 0 acetaminophen [Tylenol Extra Strength] 500 MG tablet 500 mg PO TID RF: 0 metoprolol tartrate 50 mg tablet 25 mg PO BID RF: 0 atorvastatin [Lipitor] 20 mg tablet 80 mg PO DAILY RF: 0 No Action aspirin 81 mg Tablet 81 mg PO DAILY RF: 0 Discharge Instructions Instructions: Chest Pain (DC) Additional Instructions: resume usual medication Stand Alone Forms: Nursing Discharge Form Referrals: Kvng Felton [Primary Care Provider] - 05/29/20 9:00 am Serafin Green [ [facility] STAFF PHYSICIAN] - 06/03/20 1:40 pm Activity:: Activity as Tolerated Equipment/Supplies:: No Equipment Needed Diet:: As Tolerated Discharge Orders Discharge Orders: Discharge Order (Routine); Ordered 05/20/20 Ordered By: Katlyn Wilder DS: Summary Status at Discharge Functional status at discharge: independent ambulation Overall status at discharge: patient is back to baseline Mental Status: mental status grossly normal Speech and Movement: speech and movement normal Mood: congruent mood Affect: normal affect Exam Const General: cooperative Nutritional Appearance: overweight Orientation: alert, awake and oriented x3 HENMT Head: normal to inspection, normocephalic and atraumatic Mouth: oral mucosae normal Chest Chest: normal inspection of the chest Resp Effort & Inspection: normal respiratory effort Auscultation: clear to auscultation bilaterally Cardio Rate: regular rate Rhythm: regular rhythm GI Inspection: normal to inspection Palpation: soft Auscultation: normal bowel sounds Skin General skin exam: no rashes or lesions noted Lesions: no lesions Rashes: no rashes Neuro General: patient alert, patient awake, patient oriented x3 and moves all extremities Cranial Nerves: CN's II-XI intact bilaterally Extrem General: normal to inspection and full ROM Psych Mental Status: mental status grossly normal Speech and Movement: speech and movement normal Mood: congruent mood Affect: normal affect DS: Data Vitals/I&O Vitals and I&O: Vital Signs Temperature 37.2 C 05/20/20 07:10 Temperature Source Temporal Artery Scan 05/20/20 07:10 Pulse 80 05/20/20 07:25 Pulse Rhythm Regular 05/20/20 08:35 Pulse 71 05/19/20 16:10 Respiratory Rate 17 05/20/20 07:10 Respiratory Effort Non-Labored 05/20/20 08:35 Respiratory Depth Normal 05/20/20 08:35 Respiratory Pattern Normal 05/20/20 08:35 Blood Pressure 130/81 05/20/20 07:10 Blood Pressure Mean 97 05/19/20 16:10 Blood Pressure Position Sitting 05/19/20 11:53 Pulse Oximetry 97 05/20/20 07:10 Oxygen Delivery Method Room Air 05/20/20 07:10 Oxygen Flow Rate 0 05/20/20 07:10 Pain Level 0 05/20/20 07:10 Intake & Output 05/19/20 05/19/20 05/20/20 11:59 23:59 11:59 Intake Total 100 / 100 Balance 100 / 100 Weight 73.482 kg 74.843 kg Intake: IV Oral 100 / 100 Other: Urine Color Yellow Urine Appearance Clear Clear Urine Odor Normal Comment [id number] per pt Voiding Methods Toilet Data Completed and Pending Labs on day of discharge: Labs from last 24 hours 05/20/20 05/20/20 05/19/20 06:25 06:25 22:05 WBC 6.61 RBC 4.12 L Hgb 14.4 Hct 42.0 MCV 101.9 H MCH 35.0 H MCHC 34.3 RDW 12.5 Plt Count 113 L MPV 9.2 Immature Gran % 0.3 Neutrophils % 64.3 Lymphocytes % 22.1 Monocytes % 11.6 Eosinophils % 1.1 Basophils % 0.6 Nucleated RBC % 0 Absolute Neutrophils 4.25 Absolute Lymphocytes 1.46 Absolute Monocytes 0.77 Absolute Eosinophils 0.07 Absolute Basophils 0.04 PT INR APTT Sodium 139 Potassium 3.8 Chloride 104 Carbon Dioxide 26.7 Anion Gap 8.3 BUN 16 Creatinine 0.97 Estimated GFR/1.73 m2 >= 60.00 Glucose 106 Calcium 8.8 Magnesium 1.8 Total Bilirubin 0.8 AST 43 H ALT 62 Alkaline Phosphatase 48 Troponin I < 0.05 0.05 NT-Pro-B Natriuret Pep Total Protein 6.7 Albumin 3.8 SARS-CoV-2 (PCR) Nasopharyn COVID-19 PCR Ref Test Perform Site 05/19/20 05/19/20 05/19/20 14:47 11:55 11:50 WBC RBC Hgb Hct MCV MCH MCHC RDW Plt Count MPV Immature Gran % Neutrophils % Lymphocytes % Monocytes % Eosinophils % Basophils % Nucleated RBC % Absolute Neutrophils Absolute Lymphocytes Absolute Monocytes Absolute Eosinophils Absolute Basophils PT 10.5 INR 1.0 APTT 21.4 Sodium Potassium Chloride Carbon Dioxide Anion Gap BUN Creatinine Estimated GFR/1.73 m2 Glucose Calcium Magnesium Total Bilirubin AST ALT Alkaline Phosphatase Troponin I < 0.05 NT-Pro-B Natriuret Pep Total Protein Albumin SARS[facility] (PCR) [facility] Not Applicable Ref Test Perform Site [facility] 05/19/20 05/19/20 11:50 11:50 WBC 7.17 RBC 4.47 Hgb 15.4 Hct 45.2 MCV 101.1 H MCH 34.5 H MCHC 34.1 RDW 12.3 Plt Count 134 MPV 9.0 Immature Gran % 0.6 Neutrophils % 64.0 Lymphocytes % 24.4 Monocytes % 9.8 Eosinophils % 0.1 Basophils % 1.1 Nucleated RBC % 0 Absolute Neutrophils 4.59 Absolute Lymphocytes 1.75 Absolute Monocytes 0.70 Absolute Eosinophils 0.01 Absolute Basophils 0.08 PT INR APTT Sodium 138 Potassium 3.8 Chloride 98 Carbon Dioxide 25.3 Anion Gap 14.7 H BUN 14 Creatinine 1.14 Estimated GFR/1.73 m2 >= 60.00 Glucose 82 Calcium 10.0 Magnesium Total Bilirubin 0.9 AST 69 H ALT 82 H Alkaline Phosphatase 54 Troponin I < 0.05 NT-Pro-B Natriuret Pep 446 H Total Protein 8.0 Albumin 4.9 SARS-CoV-2 (PCR) Nasopharyn COVID-19 PCR Ref Test Perform Site [facility] Surgical History DISKECTOMY LAMINECTOMY,DISKECTOMY,ARTHRODESIS WITH BONE GRAFT;11/06/13; Heart Bypass quadruple 01/03 [facility] L2 LAMINECTOMY 10/30/13 DR. MENDOZA AT [facility];FOR STENOSIS DECOMPRESSION Rotator Cuff Repair (~07/2016) LEFT SHOULDER Spinal Fusion L 4-5 LAMONECTOMY AND FUSION 04/22/09 DR. LIU Tonsillectomy AGE 7 Family History Mother No problems noted. Father , 68 Essential hypertension Heart disease Hyperlipidemia Sister No problems noted. Brother No problems noted. Brother Hypertension Hyperlipidemia Maternal Grandfather , 70+ No problems noted. Paternal Grandfather , 50 Alcohol abuse Maternal Grandmother , 90+ No problems noted. Paternal Grandmother , 90+ No problems noted. Son No problems noted. Son No problems noted. Daughter No problems noted. Daughter No problems noted. Social History Smoking/Tobacco Use Status: Current-Occasional Tobacco: How many years used: 25 Smoking risk assessment performed?: Yes Alcohol Intake: current Alcohol Intake frequency: 0-2 drinks per day Alcohol type: hard liquor Drug use: Rarely Substance use type: does not use Caregiver/Support person: No Household members: spouse Housing: house Communication Needs: None Do you need help understanding health information?: Never Pets and animals: Yes Pets and animals: cat(s) Sexually active: Yes Do you think of yourself as: straight/heterosexual Current gender identity: male What is your relationship status?: How often do you talk on the phone with friends or family?: twice per week How often do you get together with friends or relatives?: once per week How often do you attend latter-day or mormonism services?: 1-3 times per year Do you belong to any clubs or organized social groups?: no Panel score (0-1 are the most socially isolated patients): 2 What type of physical activity do you participate in: walking Duration: 30-45 minutes/day Frequency: 1-2 times per week Adriana/Sikhism: Judaism Special adriana needs: No Seatbelt use: sometimes Helmet use: Yes Helmet use: always Drive 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
[2020-05-20] MEDS: Metoprolol 50 MG TAB 25 MG PO (12:06)
--- NOTE | 2020-05-20 15:16 | PDOC.CMDIS ---
- If Service Date Differs Date of service: 05/20/20 Time of Service: 15:16 Care Management Discharge Reason for Hospitalization: Chest Pain
== END 2020-05-20 14:30 | disposition home or self-care (01) ==
LOC: ER 15:58 → MS 16:25
PROVIDERS: Nurse Practitioner Acute Care; Admitting Provider Internal Medicine; Emergency Provider Student in an Organized Health Care Education/Training Program; PCP Family Medicine; Visit Provider Internal Medicine
DX: R07.89 Other chest pain (principal); K21.9 Gastro-esophageal reflux disease without esophagitis; E78.00 Pure hypercholesterolemia, unspecified; N18.9 Chronic kidney disease, unspecified; I12.9 Hypertensive chronic kidney disease with stage 1 through stage 4 chronic kidney disease, or unspecified chronic kidney disease; I73.9 Peripheral vascular disease, unspecified; I25.10 Atherosclerotic heart disease of native coronary artery without angina pectoris; F10.10 Alcohol abuse, uncomplicated; F17.210 Nicotine dependence, cigarettes, uncomplicated; Z95.1 Presence of aortocoronary bypass graft; Z73.3 Stress, not elsewhere classified
CPT/HCPCS: 36415; 71275; 78452; 80053; 93005; 96365; 96366; 99217; 99220; 99285; U0003; 83735; 83880; 84484; 85025; 85610; 85730; 93010; 93017; 93306; G0378; J3490

== ENCOUNTER 2020-06-23 02:22 | Outpatient (CLI) | payer BC, SELFPAY ==
[2020-06-24 12:47] LABS: COVID-19 RT-PCR UVMMC Result Negative (Negative)
== END 2020-06-23 02:23 | disposition home or self-care (01) ==
LOC: LBO 02:22
PROVIDERS: PCP Family Medicine; Visit Provider Surgery
DX: Z11.52 Encounter for screening for COVID-19 (principal); Z01.818 Encounter for other preprocedural examination
CPT/HCPCS: U0003

== ENCOUNTER 2020-06-26 06:48 | Day surgery (SDC) | payer BC, SELFPAY ==
[2020-06-26 07:10] VITALS: BP 132/86; PULSE 61; RESP 18; TEMP 36.6; O2SAT 98
[2020-06-26] MEDS: Lactated Ringers 1,000 ML 80 ML IV (07:35)
--- NOTE | 2020-06-26 09:00 | W.PM.DS.N ---
Date of service: 06/26/20 Time of Service: 09:00 DS: Diagnosis Discharge Diagnosis (1) Internal and external bleeding hemorrhoids: Status: Acute (2) Diverticula of colon: Status: Acute Discharge Plan Discharge Details Attending Provider: Kassy Topete Primary Care Provider: Kvng Fleton Home Meds and New Rx's Prescriptions: No Action polyethylene glycol 3350 17 gram/dose powder 238 g PO ONCE Qty: 238 RF: 0 bisacodyl [Dulcolax (bisacodyl)] 5 mg tablet,delayed release (DR/EC) 5 mg PO ONCE Qty: 4 RF: 0 fluticasone propionate [Flonase Allergy Relief] 50 mcg/actuation spray,suspension 1 spray BECKY DAILY RF: 0 acetaminophen [Tylenol Extra Strength] 500 MG tablet 500 mg PO TID PRNRF: 0 metoprolol tartrate 50 mg tablet 25 mg PO BID RF: 0 atorvastatin [Lipitor] 20 mg tablet 80 mg PO HS RF: 0 aspirin 81 mg Tablet 81 mg PO DAILY RF: 0 DS: Data Vitals/I&O Vitals and I&O: Vital Signs Temperature 36.6 C 06/26/20 07:10 Pulse 61 06/26/20 07:10 Pulse Rhythm Regular 06/26/20 07:10 Respiratory Rate 18 06/26/20 07:10 Respiratory Depth Normal 06/26/20 07:10 Blood Pressure 132/86 06/26/20 07:10 Pulse Oximetry 98 06/26/20 07:10 Oxygen Delivery Method Room Air 06/26/20 07:10 Oxygen Flow Rate 0 06/26/20 07:10 Intake & Output 06/25/20 06/25/20 06/26/20 11:59 23:59 11:59 Intake Total 450 / 450 Balance 450 / 450 Weight 73.9 kg Intake: IV 450 / 450 [facility] Surgical History DISKECTOMY LAMINECTOMY,DISKECTOMY,ARTHRODESIS WITH BONE GRAFT;11/06/13; Heart Bypass quadruple 01/03 [facility] [place] L2 LAMINECTOMY 10/30/13 DR. MENDOZA AT ;FOR STENOSIS DECOMPRESSION Rotator Cuff Repair (~07/2016) LEFT SHOULDER Spinal Fusion L 4-5 LAMONECTOMY AND FUSION 04/22/09 DR. LIU Tonsillectomy AGE 7 Family History Mother No problems noted. Father , 68 Essential hypertension Heart disease Hyperlipidemia Sister No problems noted. Brother No problems noted. Brother Hypertension Hyperlipidemia Maternal Grandfather , 70+ No problems noted. Paternal Grandfather , 50 Alcohol abuse Maternal Grandmother , 90+ No problems noted. Paternal Grandmother , 90+ No problems noted. Son No problems noted. Son No problems noted. Daughter No problems noted. Daughter No problems noted. Social History (Updated 06/05/20 @ 11:35 by BRANDY Collins) Smoking/Tobacco Use Status: Former Tobacco Use Quit Date: 05/22/03 Tobacco: How many years used: 25 Smoking risk assessment performed?: Yes Alcohol Intake: current Alcohol Intake frequency: 3 or more drinks per day Alcohol type: hard liquor Drug use: Rarely Substance use type: does not use Caregiver/Support person: No Household members: spouse Housing: house Communication Needs: None Do you need help understanding health information?: Never Pets and animals: Yes Pets and animals: cat(s) Sexually active: Yes Do you think of yourself as: straight/heterosexual Current gender identity: male What is your relationship status?: How often do you talk on the phone with friends or family?: twice per week How often do you get together with friends or relatives?: once per week How often do you attend yazidism or sabianism services?: 1-3 times per year Do you belong to any clubs or organized social groups?: no Panel score (0-1 are the most socially isolated patients): 2 What type of physical activity do you participate in: walking Duration: 30-45 minutes/day Frequency: 1-2 times per week Adriana/Episcopalian: Restoration Special adriana needs: No Seatbelt use: sometimes Helmet use: Yes Helmet use: always Drive intox or ride 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
--- NOTE | 2020-06-26 09:05 | PDOC.DSDIS_ITS ---
Discharge Plan Disposition Patient Disposition: HOME Condition: Good Discharge Details Reason For Visit: colon scope Attending Provider: Kassy Topete Primary Care Provider: Kvng Felton Home Meds and New Rx's Prescriptions: Continued fluticasone propionate [Flonase Allergy Relief] 50 mcg/actuation spray,suspension 1 spray BECKY DAILY RF: 0 acetaminophen [Tylenol Extra Strength] 500 MG tablet 500 mg PO TID PRNRF: 0 metoprolol tartrate 50 mg tablet 25 mg PO BID RF: 0 atorvastatin [Lipitor] 20 mg tablet 80 mg PO HS RF: 0 aspirin 81 mg Tablet 81 mg PO DAILY RF: 0 Discontinued polyethylene glycol 3350 17 gram/dose powder 238 g PO ONCE Qty: 238 RF: 0 bisacodyl [Dulcolax (bisacodyl)] 5 mg tablet,delayed release (DR/EC) 5 mg PO ONCE Qty: 4 RF: 0 Discharge Instructions Additional Instructions: Findings:In/ext hemorrhoids and diverticula Follow up:repeat in 10 yrs time Please call if you develop: fevers >101.5 Nausea or Vomiting Abdominal pain that is not transient DAY SURGERY UNIT POST COLONOSCOPY INSTRUCTIONS 1. Because there will be medication in your system for the next 24 hours, you may feel a little sleepy. Your coordination will be affected. Therefore: a. Do not drive or operate dangerous equipment for 24 hours. b. Do not drink alcohol beverages for 24 hours (not even beer). c. Plan to go home and rest for the day. 2. Generally there are no restrictions on your activity after a day or so has gone by, but you may feel a bit fatigued for a few days. 3 After you arrive home you may have a light meal and return to a normal diet as you can tolerate it without feeling sick to your stomach. 4. After surgery, you may feel pain or discomfort. This should be only transient, but if it persists please contact your doctor. 5. If there are any questions regarding the findings of your procedure, please feel free to contact your doctor. 6. If you are unable to contact your doctor with a problem, contact the hospital at [phone]. 7. Continue all your regular medications unless directed otherwise. I understand the above instructions and have no questions. Signature of Patient or Responsible Adult Escort Date/Time Name of Responsible Adult Escort Signature of Nurse Date/Time DIVERTICULAR DISEASE OVERVIEW ? A diverticulum is a pouch-like structure that can form through points of weakness in the muscular wall of the colon (ie, at points where blood vessels pass through the wall). Diverticulosis affects men and women equally. The risk of diverticular disease increases with age. It occurs throughout the world but is seen more commonly in developed countries. WHAT IS DIVERTICULAR DISEASE? Diverticulosis ? Diverticulosis merely describes the presence of diverticula. Diverticulosis is often found during a test done for other reasons, such as flexible sigmoidoscopy, colonoscopy, or barium enema. Most people with diverticulosis have no symptoms and will remain symptom free for the rest of their lives. A person with diverticulosis may have diverticulitis, or diverticular bleeding. Diverticulitis ? Inflammation of a diverticulum (diverticulitis) occurs when there is thinning and breakdown of the diverticular wall. This may be caused by increased pressure within the colon or by hardened particles of stool, which can become lodged within the diverticulum. The symptoms of diverticulitis depend upon the degree of inflammation present. The most common symptom is pain in the left lower abdomen. Other symptoms can include nausea and vomiting, constipation, diarrhea, and urinary symptoms such as pain or burning when urinating or the frequent need to urinate. Diverticulitis is divided into simple and complicated forms. ?Simple diverticulitis, which accounts for 75 percent of cases, is not associated with complications and typically responds to medical treatment without surgery. ?Complicated diverticulitis occurs in 25 percent of cases and usually requires surgery. Complications associated with diverticulitis can include the following: ?Abscess ? a localized collection of pus ?Fistula ? an abnormal tract between two areas that are not normally connected (eg, bowel and bladder) ?Obstruction ? a blockage of the colon ?Peritonitis ? infection involving the space around the abdominal organ ?Sepsis ? overwhelming body-wide infection that can lead to failure of multiple organs Diverticular bleeding ? Diverticular bleeding occurs when a small artery located within a diverticulum is eroded and bleeds into the colon. Diverticular bleeding usually causes painless bleeding from the rectum. In approximately 50 percent of cases, the person will see maroon or bright red blood with bowel movements. Is bleeding with a bowel movement normal? ? It is not normal to see blood in a bowel movement; this can be a sign of several conditions, most of which are not serious (eg, hemorrhoids) but some of which are serious and require immediate treatment. Anyone who sees blood after a bowel movement should consult with their healthcare provider to determine if further testing or evaluation is n eeded. DIVERTICULOSIS AND DIVERTICULITIS DIAGNOSIS ? Diverticulosis is often found during tests performed for other reasons. ?Barium enema ? This is an x-ray study that uses barium in an enema to view the outline of the lower intestinal tract. This is an older test and has been largely replaced by computed tomography (CT) scan. ?Flexible sigmoidoscopy ? This is an examination of the inside of the sigmoid colon with a thin, flexible tube that contains a camera. ?Colonoscopy ? This is an examination of the inside of the entire colon. ?CT scan ? A CT scan is often used to diagnose diverticulitis and its complications. If diverticulitis (not just diverticulosis) is suspected, the above three tests should not be used because of the risk of perforation. TREATMENT Diverticulosis ? People with diverticulosis who do not have symptoms do not require treatment. However, most clinicians recommend increasing fiber in the diet, which can help to bulk the stools and possibly prevent the development of new diverticula, diverticulitis, or diverticular bleeding. Fiber is not proven to prevent these conditions in all patients but may help to control recurrent episodes in some. Increase fiber ? Fruits and vegetables are a good source of fiber. Fiber content of packaged foods can be calculated by reading the nutrition label. Seeds and nuts ? Patients with diverticular disease have historically been advised to avoid whole pieces of fiber (such as seeds, corn, and nuts) because of concern that these foods could cause an episode of diverticulitis. However, this belief is completely unproven. We do not suggest that patients with diverticulosis avoid seeds, corn, or nuts. Diverticulitis ? Treatment of diverticulitis depends upon how severe your symptoms are. Home treatment ? If you have mild symptoms of diverticulitis (mild abdominal pain, usually left lower abdomen), you can be treated at home with a clear liquid diet and oral antibiotics. However, if you develop one or more of the following signs or symptoms, you should seek immediate medical attention: ?Temperature >100.1?F (38?C) ?Worsening or severe abdominal pain ?An inability to tolerate fluids Hospital treatment ? If you have moderate to severe symptoms, you may be hospitalized for treatment. During this time, you are not allowed to eat or drink; antibiotics and fluids are given into a vein. If you develop an abscess of the colon, you may require drainage of the abscess (usually performed by placing a drainage tube across the abdominal wall) or by surgically opening the affected area. Surgery ? If you develop a generalized infection in the abdomen (peritonitis), you will usually require an emergency operation. A two-part operation may be necessary in some cases. ?The first operation involves removal of the diseased colon and creation of a colostomy. A colostomy is an opening between the colon and the skin, where a bag is attached to collect waste from the intestine. The lower end of the colon is temporarily sewed closed to allow it to heal. ?Approximately three to six months later, a second operation is performed to reconnect the two parts of the colon and close the opening in the skin. You are then able to empty your bowels through the rectum. Sometimes patients require up to a year to recover from the first operation, depending on how sick they were. In non-emergency situations, the diseased area of the colon can be removed and the two ends of the colon can be reconnected in one operation, without the need for a colostomy. Surgery versus medical therapy ? An operation to remove the diseased area of the colon may be necessary if you do not improve with medical therapy. After an episode of uncomplicated diverticulitis, elective surgery is generally not required as the risk of another attack or requiring emergency surgery is low. However, patients with persistent symptoms attributable to diverticulitis, a history of complicated diverticulitis, or a compromised immune system should be evaluated for possible surgery to prevent another attack. In such patients, another attack has been associated with a higher risk of complications or . Of course, the decision will also depend in part upon your other medical conditions and ability to undergo surgery. In many cases, an elective operation can be performed laparoscopically, using small incisions, rather than the typical vertical (up and down) abdominal incision. Laparoscopic surgery usually allows you to recover more quickly and shortens the hospital stay. After diverticulitis resolves ? After an episode of diverticulitis resolves, if you have not had a recent colonoscopy, the entire length of the colon should be evaluated to determine the extent of disease and to rule out the presence of abnormal lesions such as polyps or cancer. Recommended tests include colonoscopy, barium enema and sigmoidoscopy, or CT colonography. Diverticular bleeding ? Most cases of diverticular bleeding resolve on their own. However, some people will need further testing or treatment to stop bleeding, which may include a colonoscopy, angiography (a treatment that blocks off the bleeding artery), bleeding scan, or surgery. DIVERTICULAR DISEASE PROGNOSIS Diverticulosis ? Over time, diverticulosis may cause no problems or it may cause episodes of bleeding and/or diverticulitis. Approximately 15 to 25 percent of people with diverticulosis will develop diverticulitis, while 5 to 15 percent will develop diverticular bleeding. Diverticulitis ? Approximately 85 percent of people with uncomplicated diverticulitis will respond to medical treatment, while approximately 15 percent of patients will need an operation. After successful treatment for a first attack of diverticulitis, one-third of patients will remain asymptomatic, one- third will have episodic cramps without diverticulitis, and one-third will go on to have a second attack of diverticulitis. The prognosis tends to remain similar following a second attack of diverticulitis. Only 10 percent of people remain symptom-free after a second attack. Subsequent attacks tend to be of similar severity, not increasing in severity as previously believed. High Fiber Diet What is Dietary Fiber? All fiber comes from plants, bushes, maeve or trees. Of course, the ones that we eat provide us with fruits, vegetables and grains. There are many different types of fiber but the three that are most important to the health of the body are: Insoluble Fiber This fiber does not dissolve in water, nor is it fermented by the bacteria residing in the colon. Rather, it retains water and in so doing, helps to promote a larger, bulkier and more regular bowel activity. This, in turn, may be important in preventing disorder such as diverticulosis and hemorrhoids, and in sweeping out certain toxins and cancer causing carcinogens. Sources of insoluble fiber are: ? whole grain wheat and other whole grains ? corn bran, including popcorn, unflavored and unsweetened ? nuts and seeds ? potatoes and the skins from most fruits from trees such as apples, bananas and avocados ? many green vegetables such as green beans, zucchini, celery and cauliflower ? some fruit plants such as tomatoes and kiwi Soluble Fiber These fibers are fermented or used by the colon bacteria as a food source or nourishment. When these good bacteria grow and thrive, many health benefits occur in both the colon and the body. Soluble fiber is present in some degree in most edible plant foods, but the ones with the most soluble fiber include: ? legumes such as peas and most beans, including soybeans ? oats, rye and barley ? many fruits such as berries, plums, apples bananas and pears ? certain vegetables such as broccoli and carrots ? most root vegetables ? psyllium husk supplement products Prebiotic Soluble Fiber These are relatively newly discovered soluble plant fibers. The technical name for this fiber is inulin or fructan. When these soluble fibers are fermented by the good colon bacteria, some further significant health benefits have been shown to occur by research in many medical centers. These soluble prebiotic fibers occur in significant amounts in: ? asparagus ? yams ? onions ? garlic ? bananas ? leeks ? agave ? chicory and other root vegetables such as Mackey artichokes ? wheat, rye and barley (smaller amounts) Benefits of a High Fiber Diet The health benefits of a high fiber diet, consumed on a regular basis and reaching recommended amounts (below), are now fairly well-defined. There are some additional benefits in the early research stage with the prebiotic soluble fibers. What is now known regarding a high fiber diet include: Bowel Regularity A high fiber diet promotes regularity with a softer, bulkier and regular stool pattern. This decreases the chance of hemorrhoids, diverticulosis and perhaps colon cancer. Cholesterol and Reduced Triglycerides The soluble fibers are the ones that will reduce cholesterol levels when used on a regular basis. Psyllium husk and prebiotic soluble fiber will also reduce cholesterol. They may also reduce the incidence of coronary heart disease. Oats, flax seeds and legumes or beans are the recommended fibers. Colon Polyps and Cancer It is still not certain if a high fiber diet helps prevent colon cancer. Considerable research suggests that this may occur. Certainly it makes sense to increase regularity and so speed the movement of cancer causing carcinogens through the bowel. In addition, reducing a heavy meat diet reduces the bile flow from the liver in a favorable way. This, too, reduces the amount of carcinogens that reach and are manufactured in the colon. Finally, a high fiber diet, including prebiotic soluble fiber, increases the integrity and health of the wall of the colon. The risk of cancer may be reduced. Colon Wall Integrity A high fiber diet changes the bacterial makeup of the colon toward a more favorable balance. For instance, it is known that those people with obesity, diabetes type 2 and inflammatory bowel disease have a predominance of bad bacteria in the colon. This, in turn, may render the bowel wall weak and allow bacteria and, indeed, even toxins to seep through. A high fiber diet with a mode st reduction in animal and meat products may return the bacterial makeup to a more positive balance. This, in particular, has been seen when the soluble fiber prebiotics are added to the diet. Blood Sugar Soluble fiber such as in legumes (beans), oats and in prebiotic fibers slows the absorption of blood sugar and so helps regulate the sugar in the blood. Insoluble fiber on a regular basis is associated with reduced risk of type 2 diabetes. Weight Loss High fiber diets are more filling and give a sense of fullness sooner than an animal and meat based diet does. In addition, the soluble prebiotic fibers have been shown to turn off the hunger hormones produced in the wall of the gut and to increase the hormones that give a sense of fullness. Those hormones are made in the wall of the gut. New medical research has shown that the bacterial makeup in the colon in overweight people is abnormal to the extent that they manufacture and absorb almost twice the number of calories through the colon wall as do normals. Prebiotic fibers (below) will help change this hormonal balancein a favorable way. Bacteria and the Function of the Colon The colon finishes the digestive process. Hopefully, the waste products move through in a nice regular manner. Insoluble fibers help this process by retaining water and so producing a bulkier, softer stool, which is easy to pass. The additional role of the colon is to provide a home for an enormous number of micro-organisms, mostly bacteria. Recent research has shown that there are over 1,000 species of bacteria with a total bacterial count ten times the number of cells in the body. These bacteria play a major role in keeping the colon wall itself healthy. In addition, these good bacteria produce a very strong immune system for the body. They significantly increase calcium absorption and bone density. They provide other documented benefits. It is the soluble fibers in the diet that are so effective in stimulating the growth of good colon bacteria. How Much is Enough? The amount of fiber in food is measured in grams. National nutritional authorities recommend the following amounts of dietary fiber daily. Under Age 50 Over Age 50 Men 38 grams 30 grams Women 25 grams 21 grams For a week or so, it is best to tally the amount of fiber you are consuming. Boxed and packaged foods will have the amount of fiber per serving on the nutrition label. Which Fibers and Which Foods are Best? As noted, healthy fiber is only found in plants. The three major categories are whole grains, fruits and vegetables. Whole Grains Wheat, oats, barley, wild or brown rice, amaranth, buckwheat, bulgur, corn, millet, quinoa, rye, sorghum, teff and triticals. By far, wheat, oats and wild or brown rice are most common. Always buy whole grain products. White bread, baked goods and rolls almost always are made from wheat flour. Wheat flour is white because most of the fiber, vitamins and other nutrients have been removed. Try not buy enriched grains. What this means is that simple white flour has had vitamins added to it by the oracle adf consultant. The word, enriched, implies a good and healthy product. On the contrary, enriched means that most of the fiber has been removed and a few vitamins added. Fruits Fruits come from trees such as apple and pear or from bushes or maeve. You should eat a wide variety of fruits, preferably with every meal. In many cases, the skin of a fruit such as apple will contain much of the insoluble fiber while the pulp contains most of the soluble fiber. To the extent possible, buy organic fruits as these will have little or no pesticides. Always wash fruit. Vegetables Eat a wide variety of vegetables. They should be a mainstay of lunch and dinners. Frozen vegetables retain as much nutrition and fiber as fresh vegetables. As with fruit, try to buy organic to reduce any residual pesticide ingestion. Wash fresh vegetables thoroughly. Cruciferous vegetables such as broccoli, Eckerman sprouts and cauliflower contain certain chemicals such as sulforaphane. This substance has very strong anti-cancer properties and should be eaten frequently. Legumes, Beans, Peas and Soybeans These vegetables have plenty of soluble fiber and should be part of a varied vegetable intake. Beans, in particular, contain a certain type of fiber that may lead to harmless gas or bloating. Nuts and Seeds These are rich sources of fiber and are a good substitute for sweets such as candies and baked sweet goods. While nuts and seeds are rich in fiber, they also contain vegetable fat and so can and do add calories. Read the Labels As noted, fresh and frozen foods are usually better. They have good nutrition and few, if any, chemicals added to them. When buying packaged foods and, in particular grains, look for three things: ? The first word on the label should be whole, such as whole wheat or whole grain. ? Check out the calories and the amount of fiber in a serving. ? How many and what other additives or chemicals are added. Fewer is always better. Do you know what each additive does? Some are added not for the benefit of the digital media buyer but rather for manufacturers. These could and do include sugar, artificial flavor, chemicals to prevent oxidation and spoilage, emulsifiers to blend the product. You have to be a escort patients. Fiber Facts, Nuggets and Pearls ? For breakfast you can easily get the day started well by using a high fiber, whole grain cereal. Check the labels. Add fruit such as blueberries and bananas. If you are an egg eater, use whole wheat or grain toast. Adding wheat germ gives you a good fiber kick. ? Always use whole grain or wheat with rolls and sandwiches. Does your fast food store not have them? Perhaps you look elsewhere. Eating an occasional black brown or veggie burger provides variety. ? Snacks should consist of fruit and/or nuts. While nuts are loaded with fiber, they are an energy rich food, meaning they have a lot of calories in a s mall packet. ? Fruit juices should contain pulp. Clear juices such as clear orange, pear or apple juice contain little fiber and have a lot of fructose. Prune juice is usually high in fiber. ? Homemade soups ? adding fresh or frozen vegetables to a chicken or vegetable stock is a good way to start homemade soup. ? Salads ? adding cooked and then chilled vegetables provide great flavoring to almost any salad. Remember, a lane salad has lots of cooked corn in it. Small slices of apples or oranges and nuts such as chopped walnuts or sliced almonds always adds taste, variety and fiber to almost any salad. ? Fruit ? Try to eat fruit of some type with almost every meal. ? Rethink how you place the various foods on your dinner plate. Reducing the portions of the meat or animal food portion to the side with equal or more portions of vegetables, legumes and fruits portion always allows for more fiber. There was never anything magic about making the meat or animal food portion the main part of the dinner plate. Eating from smaller plates can, over time, trick your mind and medical terminologist habit of using a dinner plate. Again, there is nothing magic in an 11, 12, or 13 inch dinner plate. Fiber Supplements There are a variety of fiber supplements available on the food or pharmacy shelves. Psyllium This soluble plant fiber has been used in [place] for over 2,000 years. It is a soluble fiber with mucilage in it. This acts to retain a lot of water and also is fermented by colon bacteria. When 7 grams a day are used, it does lower cholesterol. Metamucil in various forms is psyllium. Methyl Cellulose All the cellulose products come from finely ground wood chips which are then treated in a variety of ways such as boiling in acids. Methyl cellulose is an insoluble fiber which does dissolve in water. It is also an emulsifier, meaning it blends oils and water. Citrucel is methyl cellulose (MC). MC may not be appropriate for Crohn?s disease or ulcerative colitis as several medical studies have shown that certain emulsifiers dissolve the mucous lining of the colon in animals prone to Crohn?s disease. This then allows bacteria to invade the underlying tissue. Inulin Inulin is a soluble prebiotic fiber found in many foods and which are fermented mostly in the left side of the colon. It is available in a supplement as generic inulin and in Fiber Choice. Oligofructose FOS These are also prebiotic fibers. They are fermented very quickly in the right side of the colon. Prebiotin This product is a combination of oligofructose, which feeds the bacteria in the right side of the colon and inulin, which does the same in the left side of the colon. There seems to be a benefit for this particular formula based on medical research. Prebiotic Soluble Fiber These may be the healthiest of all the soluble fibers. They grow in many plants and have had a great deal of research done on them in the last 10-15 years. These fibers are found in asparagus, yams and other root vegetables such as chicory, garlic, onion, leeks and in smaller amounts in wheat. This research has shown the following: ? Increase in good and decrease in bad colon bacteria ? Increase calcium absorption and enhanced bone mass ? Enhanced immune system ? Appetite and weight control by changing the hormone appetite signals to the brain ? May decrease colon cancer incidence ? Reduce or correct a leaky colon Eating a wide variety of plant food up to the recommended amount will likely give you enough prebiotic fiber. Supplements such as Prebiotin can be added to the diet. Short Chain Fatty Acids (SCFA) Some rather remarkable research findings have shown that one of the benefits of ingesting a lot of soluble fiber, in particular the prebiotic ones, results in larger amounts of SCFAs in the colon. These SCFAs are made by the good bacteria in the colon such as Bifidobacter and Lactobacillus. These small molecules have been shown to do the following: ? Enhance the health and integrity of the colon wall ? Provide nourishment for the cells that actually line the colon ? Increases the acidity of the colon which is a very real health benefit ? Stabilize blood sugar for diabetics ? Reduce blood cholesterol and triglyceride ? Significantly enhance immunity ? May be a benefit for Crohn?s disease and ulcerative colitis patients Fiber and Gas Everyone has intestinal gas and that is a good thing. It means that bacteria, hopefully the good ones, are thriving. The normal amount of flatus passed each day depends on sex and what is eaten. The normal number of flatus is 10-20 times a day. When the bacteria that make intestinal gases are growing, it also means that other good bacteria are using the same fibers to grow and produce multiple health benefits, including the production of healthy short-chain fatty acids. These substances are produced quietly in the colon and produce many health-related outcomes. Soluble fiber should always be used in a gradual manner. If too much is consumed at any one time, then excess, but harmless, intestinal gas can occur. People with irritable bowel syndrome are particularly prone to bloating and mild cramping. In this instance, soluble fiber in the diet or supplement should be used in small doses and increased gradually. Finally, prebiotic fibers tend to cause the production of short-chain fatty acids which acidify the colon. This, in turn, reduces or stops the growth of bacteria that make the smelly hydrogen sulfide gases that produce noxious flatus. People who consume many vegetables with prebiotics or take a prebiotic fiber supplement often have non-odoriferous flatus. Fiber and Irritable Bowel Syndrome Irritable bowel syndrome (IBS) is one of the most common disorders of the lower digestive tract. The symptoms of IBS can be quite varied. They can be a mix of several symptoms such as constipation, diarrhea, crampy abdominal discomfort, bloating and gas. An attack of IBS can be triggered by emotional tension and anxiety, poor dietary habits and certain medications. It is now known that infections in the intestine can lead to long-term IBS symptoms. Increased amounts of fiber in the diet can help relieve the symptoms of irritable bowel syndrome by producing soft, bulky stools. This helps to normalize the time it takes for the stool to pass through the colon. Recent medical research with newer techniques has shown some surprising and dramatic findings for IBS patients. Specifically, there is a very significant and abnormal shift of bacteria from those that provide health benefits to those bad bacteria that we really do not want in the gut. The technical name for this bad group of bacteria is called Firmicutes. Along with this abnormal bacterial collection, there is a smoldering low-grade inflammation in the gut wall that may contribute to symptoms. The goal for IBS patients should be to gradually increase the soluble dietary fibers in the diet so as to promote the growth of good bacteria and so suppress the bad ones along with the associated inflammation. IBS patients need to be careful of the amount of soluble fiber they consume. The reason for this is that, while the good colon bacteria thrive on these fibers and produce health benefits, other gas-forming bacteria may generate excessive but harmless gas and subsequent bloating. Thus, soluble plant fibers or a dietary prebiotic supplement should be taken in small initial doses and then gradually increased to tolerance. Fiber and Colon Polyps/Cancer Colon cancer is a major health problem. This disease is most common in Western cultures. It is not seen very often in rural cultures where the diet is mostly plant based. Usually, colon cancer starts out as a colon polyp, a benign mushroom-shaped growth. In time it grows, and in some people it becomes cancerous. Colon cancer is usually always curable if polyps are removed when found or if surgery is performed at an early stage. It is now known that people can inherit the risk of developing colon cancer, but diet is important, too. As noted, there is a very low rate of colon cancer in residents of countries where grains are unprocessed and retain their fiber. It seems that in the [place] world, cancer-containing agents (carcinogens) remain in contact with the colon wall for a longer time and in higher concentrations. So, a large bulky stool may act to dilute these carcinogens by moving them through the bowel more quickly. Less carcinogenic exposure to the colon may mean fewer colon polyps and less cancer. A very current review of the entire world?s literature on the effect of fiber on colon polyps and cancer prevention has shown rather clearly that for every 10 grams of fiber added to the diet, there is a 10% reduction in incidence of colon cancer. So the recommended 30 gram fiber diet would result in a 30% less chance of getting these tumors. There are also substances produced in the colon by the good bacteria that seem to retard certain pre-cancer factors from developing. They are called short- chain fatty acids (SCFA). See above for description of SCFAs. A high fiber diet increases these substances. So, the combination of dietary fiber and the production of short-chain fatty acids have a clear health benefit. Fiber and Diverticulosis Prolonged, vigorous contraction of the colon over a long period of time may result in diverticulosis. This increased pressure causes small and, eventually, larger ballooning pockets to form. These pockets by themselves cause no problem. However, sometimes they become infected (diverticulitis) or even break open (perforate) causing infection or inflammation within the abdomen (peritonitis). A high fiber diet increases the bulk in the stool and thereby reduces the pressure within the colon. By so doing, the formation of pockets may be reduced or possibly even stopped. In the past, many physicians were fearful that seeds as in tomatoes, nuts or berries were harmful and could get inside these pockets and rattle around, causing damage. We now know that this has never been the case and that these foods contain lots of fiber and are actually beneficial for diverticulosis patients. Certain bulking agents such as psyllium are traditional types of bulk producing supplements. Psyllium is a soluble fiber. Combining it with insoluble fiber as in wheat bran or corn bran (no gluten) can enhance this bulking effect even more. A product containing a prebiotic, psyllium and wheat bran is probably a very good combination for bowel regularity. Prebiotin Regularity/Diverticulosis is one such product. Activity:: No lifting over 20 pounds or strenuous activity x24 hours. Diet:: A small light meals [id number]. Need to see her right I saw her Discharge Orders Discharge Orders: Discharge Order (Routine); Ordered 06/26/20 Ordered By: Kassy Topete DS: Diagnosis Discharge Diagnosis (1) Internal and external bleeding hemorrhoids: Status: Acute (2) Diverticula of colon: Status: Acute
--- NOTE | 2020-06-26 09:11 | W.COLOREPORT ---
Date of service: 06/26/20 Time of Service: 09:11 Colonoscopy Report Date of procedure: 06/26/20 Pre-op diagnosis general: screen Prep: Miralax/Dulcolax Retraction Time: 8 mins Procedure Description: After informed consent was obtained the patient was taken to the procedure room and placed in a left decubitous position. Monitors were applied and a time out was done. The patients name, date of , procedure, allergies to medications and metal in their body was reviewed. The patient was then sedated. Once sedated and comfortable a rectal exam was done. External hemorrhoids - not thrombosed. Internal exam revealed a normal sphincter tone and no palpable masses. The scope was then introduced and retrofelexed. Grade II internal hemorrhoids were identified. The scope was then advanced to the cecum w/out difficulty. The TI and appendiceal orifice were identified. The prep was good. The scope was then slowly retracted over 8 minutes back into the rectum.: No polyps or AVMs. He does have minor diverticula confined to the sigmoid colon. There is no signs of active bleeding or infection.. The scope was removed and the patient was woken up and taken back to Same day surgery in stable condition. The patient tolerated the procedure well and there were no immediate complications. Follow up: The patient should follow up in 10 years unless they develop changes in bowel habits or other new gastrointestinal complaints.
[2020-06-26 09:20] VITALS: BP 112/74; PULSE 64; RESP 16; TEMP 36; O2SAT 100
== END 2020-06-26 09:52 | disposition home or self-care (01) ==
PROVIDERS: PCP Family Medicine; Visit Provider Surgery
PROC: 0DJD8ZZ Inspection of Lower Intestinal Tract, Via Natural or Artificial Opening Endoscopic (ICD-10-PCS; CPT 45378; principal; 2020-06-26 08:15)
DX: Z12.11 Encounter for screening for malignant neoplasm of colon (principal); K64.8 Other hemorrhoids; K64.1 Second degree hemorrhoids; K57.30 Diverticulosis of large intestine without perforation or abscess without bleeding
CPT/HCPCS: 45378

== ENCOUNTER 2020-12-02 03:31 | Outpatient (CLI) | payer BC, SELFPAY ==
[2020-12-02 16:14] LABS: Hemoglobin A1C 5.4 % (<5.7)
[2020-12-02 20:56] LABS: Calculated LDL 77 mg/dL (<100); Cholesterol 156 mg/dL (<200); HDL Cholesterol 54 mg/dL (40-60); Triglyceride 127 mg/dL (<150)
== END 2020-12-02 03:32 | disposition home or self-care (01) ==
LOC: LBO 03:31
PROVIDERS: PCP Nurse Practitioner Family; Visit Provider Nurse Practitioner Family
DX: E78.5 Hyperlipidemia, unspecified (principal); Z13.1 Encounter for screening for diabetes mellitus
CPT/HCPCS: 36415; 80061; 83036

== ENCOUNTER 2022-03-31 04:42 | Outpatient (CLI) | payer MEDICARE, BC, SELFPAY ==
[2022-03-31 16:49] LABS: Estimated GFR 83.52 (mL/min/1.73m2)
== END 2022-03-31 04:43 | disposition home or self-care (01) ==
PROVIDERS: PCP Nurse Practitioner Family; Visit Provider Nurse Practitioner Family
DX: I10 Essential (primary) hypertension (principal)
CPT/HCPCS: 36415; 82565

== ENCOUNTER 2022-06-22 04:15 | Outpatient (CLI) | payer MEDICARE, BC, SELFPAY ==
[2022-06-22 16:23] LABS: Abs Immature Grans 0.05 10^3/uL (0.0-0.06); Absolute Basophil Count 0.07 10^3/uL (0.0-0.2); Absolute Eosinophil Count 0.09 10^3/uL (0.0-0.7); Absolute Lymphocyte Count 1.96 10^3/uL (1.2-3.4); Absolute Monocyte Count 0.87 10^3/uL (0.1-0.8); Absolute Neutrophil Count 3.86 10^3/uL (1.2-6.7); Eosinophils % 1.3; HCT 41.1 % (40.0-50.0); HGB 13.7 g/dL (13.5-17.5); Immature Grans % 0.7; Lymphocytes % 28.4; MCH 34.1 pg (27.0-33.0); MCHC 33.3 % (32.0-36.0); MCV 102 fL (80-95); Monocytes % 12.6; Platelet Count 163 10^3/uL (130-400); RBC 4.02 10^6/uL (4.36-5.78); RDW 13.6 % (11.8-14.1); RDW-SD 51.8 fL
[2022-06-22 17:34] LABS: Anion Gap 9.2 mmol/L (3-11); BUN 17 mg/dL (7-18); CO2 26.8 mmol/L (21.0-32.0); CREATININE 1.1 mg/dL (0.70-1.30); Calcium 9.3 mg/dL (8.5-10.1); Chloride 105 mmol/L (98-107); Glucose 99 mg/dL (74-106); Potassium 4.4 mmol/L (3.5-5.1); Sodium 141 mmol/L (136-145)
[2022-06-24 13:02] LABS: Prealbumin 35 mg/dL (20-40)
== END 2022-06-22 04:16 | disposition home or self-care (01) ==
PROVIDERS: PCP Nurse Practitioner Family; Visit Provider Surgery
DX: R09.89 Other specified symptoms and signs involving the circulatory and respiratory systems (principal); I65.23 Occlusion and stenosis of bilateral carotid arteries; Z01.818 Encounter for other preprocedural examination
CPT/HCPCS: 36415; 80048; 84134; 85025

== ENCOUNTER → 2023-01-27 00:37 | Outpatient (CLI) | payer MEDICARE, BC, SELFPAY ==
--- NOTE | 2023-01-27 07:30 | DI.CTLCSR_ITS ---
Exam(s) CT CHEST LUNG CANCER SCREEN EXAM: CT CHEST LUNG CANCER SCREEN CLINICAL HISTORY: Screening for lung cancer,former smoker, z87.891 TECHNIQUE: Imaging Protocol: Axial computed tomography images with coronal and sagittal reformatted images were created and reviewed COMPARISON: CT CT THORAX CTA from 05/19/2020 FINDINGS: Tracheobronchial tree: Patent where visualized. Pulmonary parenchyma: No consolidation or dominant measurable mass. No architectural distortion. Lung Nodules: There is a 3 mm nodule in the left upper lobe. There is a 3 mm nodule adjacent to the right major fissure. No other nodules are seen. Mediastinum and Dayna: No dominant adenopathy or fluid collection. The esophagus is unremarkable. Thyroid gland: Unremarkable. Lymph nodes: Unremarkable. Pleura: No effusion or pneumothorax. Heart: The heart is not dilated. Coronary artery calcification and/or stents are present. No pericar dial effusion. Aorta: Thoracic aorta non-dilated.Atherosclerosis. Upper abdomen: Fatty infiltration of the liver. Soft Tissues: Unremarkable. Bones: Within normal limits. There are old right rib fractures. Sternal wires are in place. There a re advanced degenerative changes seen at L1-L2 and L2-L3. There is irregularity of the adjacent natalee ices at L1-L2 and infection cannot be excluded. MRI is recommended for further evaluation. IMPRESSION: 1. 3 mm nodules in the left upper lobe and adjacent to the right major fissure. 2. L1-L2 degenerative changes with cortical regularity raising the question of infection. MRI withou t and with contrast is recommended for further evaluation. Lung RADS Cat 2 - Benign Appearance / Behavior: Nodules with a very low likelihood of becoming a clin ically active cancer due to size or lack of growth Modifier S Lung-RADS 1.0 CATEGORIES: Category 0 - Prior chest CT exam(s) being located for comparison. Category 1 - Annual screening in 12 months. No nodules or definitely benign nodules. Category 2 - Annual screening in 12 months. Benign appearance. Nodules with low likelihood of becomin g active cancer. Category 3 - 6-month follow-up. Probably benign. Short-term follow-up suggested. Nodules with low lik elihood of becoming active cancer. Category 4A - 3-month follow-up and CT/PET if >8 mm in size. Suspicious finding. Findings which requi re additional testing. Category 4B - Findings which require additional testing and tissue sampling. Suspicious finding. Category 4X - Category 3 or 4 nodules with additional features or imaging findings that increases the suspicion of malignancy. Modifier S- Potentially clinically significant finding. (Non lung cancer) Unexpected findings RADIATION DOSE DELIVERED: 78.96mGy.cm Total DLP 78.96mGy.cmTotal DLP DATA REPOSITORY: All CT scans at this facility are submitted to the National Radiology Data Registry (NRDR) Dose Index Registry (DIR) with the [employer] ([employer]). RADIATION OPTIMIZATION: All CT scans at this facility use at least one of these dose optimization te chniques: automated exposure control; mA and/or kV adjustment per patient size (includes targeted exa ms where dose is matched to clinical indication); or iterative reconstruction.
--- NOTE | 2023-01-27 07:30 | DI.MRI_ITS ---
Exam(s) MR LUMBAR SPINE WO EXAM: MR LUMBAR SPINE WO CLINICAL HISTORY: Worsening lower back pain,radicular, m54.10. TECHNIQUE: Multiplanar multisequence MRI of the Lumbar spine was performed. COMPARISON: MR MRI - LUMBAR SPINE W/WO CONT from 06/07/2013 FINDINGS: Bones: The last intervertebral disc space is designated the L5/S1 level for the numbering purpose of this examination. Postsurgical changes of posterior spinal surgery with rods are seen from L2 throu gh S1. There is grade 1 anterolisthesis of L4 on L5. There is hyperintense signal seen particularly on the STIR images within the T12 and L1 vertebral bodies. May be a small amount of hyperintense sig nal seen within the L1-L2 disc space on the STIR images. This corresponds to hypointense signal on t he T1 weighted images. No epidural fluid collection is seen. Marrow signal is otherwise within normal limits. Cord: The conus tip ends at the L1 level. It is of normal size and signal intensity. T12-L1: There is a diffuse disc bulge. Hypertrophic changes of the ligamentum flavum are seen. Ther e is mild narrowing of the central spinal canal. There is marked right and moderately severe left ne ural foraminal stenosis. No central spinal canal or neural foraminal stenosis. L1-2: There is a diffuse disc bulge. There are degenerative changes of the facets. No significant c entral spinal canal stenosis is seen. There is moderate left neural foraminal stenosis. No signific ant right neural foraminal stenosis. L2-3: There appears to be a orthopedic screw protruding from the posterior L2-3 disc space into the r ight aspect of the spinal canal. This in conjunction with the degenerative changes of the facets cau ses marked central spinal canal stenosis. There is marked right neural foraminal stenosis and modera tely severe left neural foraminal stenosis. L3-4: Degenerative changes of the facets are seen. No significant disc herniation is seen. No centr al spinal canal or neural foraminal stenosis. L4-5: No disc herniations or bulges are present. No significant central spinal canal stenosis. There is [id number]-bz-yfbxqzrc bilateral neural foraminal stenosis. L5-S1: No disc herniations or bulges are present. No significant central spinal canal or neural kike inal stenosis. Soft tissues: The visualized SI joints and sacrum are well maintained. The paraspinal soft tissues ar e unremarkable. IMPRESSION: 1. Abnormal signal seen at the T12-L1 disc level with findings concerning for sequelae of infection. No epidural fluid collection is seen. Postcontrast MRI of the lumbar spine is recommended. 2. What appears to be an orthopedic device protruding from the L2-L3 disc level posteriorly into the spinal canal which in conjunction with the degenerative changes, causes marked central spinal canal s tenosis. 3. Multilevel degenerative changes in the lumbar spine resulting in central spinal canal and neural f oraminal stenosis. 4. Findings were discussed with Williams Chappell at 4 p.m. on 01/27/2023. DATA REPOSITORY:
== END ==
PROVIDERS: PCP Nurse Practitioner Family; Visit Provider Nurse Practitioner Family
DX: Z87.891 Personal history of nicotine dependence; Z12.2 Encounter for screening for malignant neoplasm of respiratory organs; M99.63 Osseous and subluxation stenosis of intervertebral foramina of lumbar region; M48.02 Spinal stenosis, cervical region
CPT/HCPCS: 71271; 72148

== ENCOUNTER → 2023-01-30 08:49 | Outpatient (CLI) | payer MEDICARE, BC, SELFPAY ==
--- NOTE | 2023-01-30 07:45 | DI.RAD_ITS ---
Exam(s) XR LUMBAR SPINE COMPLETE EXAM: XR LUMBAR SPINE COMPLETE CLINICAL HISTORY: L3-2 disk surgery (screw?),radicular low back pain,? infection,m54.10. TECHNIQUE: 2D digital imaging was performed. Five views. COMPARISON: MRI lumbar spine 27 January 2023 FINDINGS: Right-sided posterior fusion trudy with pedicle screws extending from L2 through L4. A disc spacer is s een at the L2-3 level. Disc spacer is noted located at the posterior half of the disc space and there is a prominent bridging osteophyte extending into the canal. There is not an orthopedic screw extend ing into the disc space. There is moderate narrowing of the L2-3 disc space. Prominent endplate osteo phytes. Posterior fusion trudy with pedicle screws extending from the L4 through S1 levels on the left. Laminec musa defects noted at L4 and L5. Severe loss of disc height at L1-2 with sclerosis of the endplates and vacuum disc phenomenon. Endpla te osteophytes. Infection was questioned at this level on prior MRI which cannot be evaluated on this exam. [id number]-ja-[id number] loss of disc height at L2-3. Endplate osteophytes, greater on the left. L3-4 disc space is maintained. Severe narrowing of the L4-5 and L5-S1 disc spaces. IMPRESSION: A disc spacer is seen at the L2-3 level. There is a posterior osteophyte extending into the central c anal at this level. There is no orthopedic screw extending into the canal. Postsurgical and degenerative changes as noted above. DATA REPOSITORY: RADIATION DOSE DELIVERED:
--- NOTE | 2023-01-30 07:48 | DI.MRI_ITS ---
Exam(s) MR LUMBAR SPINE W EXAM: MR LUMBAR SPINE W CLINICAL HISTORY: ATTN: T12-L1,?infection,f/u mri 01/27,radicular low back pain,m54.10. TECHNIQUE: Multiplanar multisequence MRI of the Lumbar spine was performed. COMPARISON: MR MR LUMBAR SPINE WO from 01/27/2023 CR XR LUMBAR SPINE COMPLETE from 01/30/2023 FINDINGS: Multilevel fusion hardware again noted from L2 down to S1, inclusive. Conus medullaris is at normal level. There is no evidence of conus mass nor subjacent clumping of in trathecal nerve roots to suggest arachnoiditis. The distal thecal sac appears unremarkable.There is no evidence of Tarlov intrasacral cysts nor other significant findings within the sacral canal Bones:There are no fractures nor ominous osseous lesions in the lumbar vertebral bodies and visualize d sacrum. With respect to the individual levels... T11-T12: Normal disc height. Small posterolateral right disc protrusion noted. No prominent central canal stenosis. No foraminal stenosis. T12-L1: This level again exhibits advanced disc space narrowing. This was a level which exhibited hi gh signal throughout the T12 and L1 vertebral bodies on STIR imaging and indeed also exhibits enhance ment of both of these vertebral bodies. There is severe narrowing of the disc space again noted but without obvious abnormal enhancement within the minimal remain disc space.. Posteriorly there is bro ad annular bulging at this level with moderate central spinal canal stenosis. There is no epidural f luid collection at this level. No significant epidural enhancement evident at this level. L1-2: This is 1 level above the fusion. Normal disc height. Annular bulging with a posterolateral l eft disc protrusion which extends posteriorly 5 millimeters and is approximately 1.8 cm wide,, this e xtending into the floor of the exiting left neural foramen and resulting in mild left-sided foraminal stenosis. There is no foraminal stenosis on the right side. Central canal dimensions are lower nor mal. Some enhancement is seen along the screw channel on the right side. No abnormal epidural colle ction at this level. L2-3: Fusion hardware posterior right at this level with posterior fusion trudy right-sided intra pedic ular screws. At this level there is an intervertebral disc space device which appears to project pos terior to the disc space by approximately 1 cm, significantly indenting the thecal sac. There also i s bony ridging over this area. This finding results in severe central spinal canal stenosis at this level.. No abnormal enhancement in the disc space and epidural space. There is an element of right- sided foraminal stenosis. Only mild left-sided foraminal stenosis evident at this level. L3-4: Normal disc height and signal. No disc herniation. No central canal stenosis. Absence of pos terior osseous elements. No foraminal stenosis. No abnormal enhancement at this level. L4-5: Fused level with bilateral intrapedicular screws at this level. Absence of posterior osseous e lements at this level. Advanced disc space narrowing. Anterolisthesis L4 upon L5 approximately 11 m m. No abnormal intraosseous signal nor enhancement at this level. Minimal foraminal stenosis at thi s level. L5-S1: Left-sided intrapedicular screws at this level. Moderate disc space narrowing. Mild anteroli sthesis L5 upon S1 no central canal stenosis. Bilateral foraminal stenosis due to vertebral disc hei ght loss with some impingement of the exiting nerve roots bilaterally at this level. No abnormal has been at this level Soft tissues: paraspinal soft tissues appear unremarkable. IMPRESSION: Multilevel findings as described above. Most significant findings appear to be.... 1. Severe central spinal canal stenosis at L2-3 level where there is an intervertebral disc space de vice which extends significantly posterior to the posterior cortices of L2 and L3 with significant im pingement upon the central canal-thecal sac compound by overlying bony ridging. Severe central spina l canal stenosis at this level. No evidence of discitis nor osteomyelitis at this level. 2. Moderate central canal stenosis at T12-L1 level most related to broad annular bulging. 3. Significant abnormality throughout the T12 and L1 vertebral bodies again noted, also exhibiting si gnificant enhancement throughout these vertebral bodies. Although there is no abnormal enhancement w ithin the disc space at this level, this space is significantly diminished. However, there does not appear to be true loss of the endplates and thus the findings in the vertebral bodies at this level m ay be due to advanced Modic type 1 sub endplate marrow edema changes. Correlation with appropriate b lood work, sed rate recommended and consider repeat MRI after appropriate clinical interval. 4. There is no evidence of epidural abscess in the lumbar spine. DATA REPOSITORY:
[2023-01-30 10:31] LABS: CREATININE 1.2 mg/dL (0.70-1.30); Estimated GFR 67.11 (mL/min/1.73m2)
[2023-01-30] MEDS: Normal Saline Flush 10 ML SYR IVP (10:47)
[2023-01-30] MEDS: Gadoterate meglumine 20 ML SYRINGE 15 ML IVP (10:48)
--- NOTE | 2023-01-30 14:54 | DI.VRAD_ITS ---
PROCEDURE INFORMATION: Exam: MR Lumbar Spine With Contrast Exam date and time: 01/30/2023 10:45 AM Age: 67 years old Clinical indication: Low back pain; Prior surgery; Surgery date: 6+ months; Surgery type: Most recent l-spine surgery 2013 TECHNIQUE: Imaging protocol: Magnetic resonance imaging of the lumbar spine with contrast. Contrast material: DOTAREM; Contrast volume: 15 ml; Contrast route: INTRAVENOUS (IV); COMPARISON: MR LUMBAR SPINE WO 01/27/2023 2:17 PM FINDINGS: Bones/joints: Hardware in stable position. Spinal cord: Cord compression at the T12-L1 level redemonstrated. T12-L1: Advanced degenerative changes noted at T12-L1 with [id number] central canal stenosis and compression of the cord. L1-L2: Moderate disc bulge with mild central canal stenosis. No significant neural foraminal narrowing. L2-L3: Intervertebral disc prosthesis at L2-L3 partially within the anterior epidural space, with narrowing of the right lateral recess and spinal canal. L3-L4: No significant disc bulge or herniation. No severe spinal canal stenosis. No significant neural foraminal narrowing. L4-L5: Stable grade 1-2 anterolisthesis. No severe spinal canal stenosis. No significant neural foraminal narrowing. L5-S1: Stable grade 1 anterolisthesis. No severe spinal canal stenosis. No significant neural foraminal narrowing. Soft tissues: Unremarkable. 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 Additional findings as described. Dictated and Authenticated by: Katerin De Jesus MD. Ordering:MARCEL Kramer MD
== END ==
PROVIDERS: PCP Nurse Practitioner Family; Visit Provider Family Medicine
DX: M54.10 Radiculopathy, site unspecified (principal)
CPT/HCPCS: 72110; 72149; 82565

== ENCOUNTER 2023-02-21 02:14 | Outpatient (CLI) | payer MEDICARE, BC, SELFPAY ==
[2023-02-22 18:21] LABS: PSA, Diagnostic 0.3 ng/mL (<=4.5)
== END 2023-02-21 02:15 | disposition home or self-care (01) ==
PROVIDERS: PCP Nurse Practitioner Family; Visit Provider Nurse Practitioner Family
DX: N40.1 Benign prostatic hyperplasia with lower urinary tract symptoms (principal); N13.8 Other obstructive and reflux uropathy
CPT/HCPCS: 36415; 84153

== ENCOUNTER → 2023-03-03 18:57 | Outpatient (CLI) | payer MEDICARE, BC, SELFPAY ==
--- NOTE | 2023-03-03 | DI.CT_ITS ---
Exam(s) CT LUMBAR SPINE WO EXAM: CT LUMBAR SPINE WO CLINICAL HISTORY: S/P LUMBAR FUSION Z98.1 WITH BACK AND LEG PAIN LUMBAR DISC DISEASE M51.9. TECHNIQUE: Imaging Protocol: Axial computed tomography images with coronal and sagittal reformatted images were created and reviewed COMPARISON: CR XR LUMBAR SPINE COMPLETE from 01/30/2023 FINDINGS: Bones: The last intervertebral disc space is designated the L5/S1 level for the numbering purpose of this examination. The vertebral body heights are well maintained. There is disc space narrowing at t here is posterior spinal surgery with rods and pedicle screws from L2 through S1. There is grade 1 a nterolisthesis of L4 on L5. There does appear to be fusion of the L4-5 disc space. There is a disc spacer at the L2-L3 disc level. There are vacuum discs at T12-L1, L1-L2 and L2-L3. There are endpla te osteophytes throughout the lumbar spine. T12-L1: There is prominence of the osteophyte disc complex. There is mild narrowing of the central spinal canal. Mild bilateral neural foraminal narrowing is present. L1-2: There is a diffuse disc bulge. There is mild narrowing of the central spinal canal. There is moderate to severe bilateral neural foraminal stenosis left greater than right. L2-3: There is a diffuse disc bulge and bony hypertrophy causing marked central spinal canal stenosi s. There is bilateral neural foraminal stenosis which is marked. L3-4: No disc herniations or bulges are present. No central spinal canal or neural foraminal stenosi s. L4-5: No disc herniations or bulges are present. No central spinal canal or neural foraminal stenosi s. L5-S1: No disc herniations or bulges are present. No central spinal canal or neural foraminal stenos is. Soft Tissues: The visualized SI joints and sacrum are will maintained. The paraspinal soft tissues a re unremarkable. Atherosclerosis is present. Note is made of diverticulosis in the colon. IMPRESSION: 1. Multilevel degenerative changes in the lumbar spine 2. Spinal surgery from L2 through S1. 3. Multilevel central spinal canal and neural foraminal stenosis as described above. RADIATION DOSE DELIVERED: Total DLP Total DLP DATA REPOSITORY: All CT scans at this facility are submitted to the National Radiology Data Registry (NRDR) Dose Index Registry (DIR) with the [employer] (ACR). RADIATION OPTIMIZATION: All CT scans at this facility use at least one of these dose optimization te chniques: automated exposure control; mA and/or kV adjustment per patient size (includes targeted exa ms where dose is matched to clinical indication); or iterative reconstruction.
== END ==
PROVIDERS: PCP Nurse Practitioner Family; Visit Provider Physician Assistant Medical
DX: M51.36 Other intervertebral disc degeneration, lumbar region (principal); Z98.890 Other specified postprocedural states; M99.63 Osseous and subluxation stenosis of intervertebral foramina of lumbar region
CPT/HCPCS: 72131

== ENCOUNTER 2023-03-11 13:52 | Emergency (ER) | payer MEDICARE, BC, SELFPAY ==
[2023-03-11 14:14] VITALS: BP 169/116; PULSE 125; RESP 18; O2SAT 99
--- NOTE | 2023-03-11 14:59 | W.ED.GENAD ---
Discharge Plan Disposition Patient Disposition: Home Condition: Stable Discharge Details Clinical Impression: Acute urinary retention Primary Care Provider: Williams Chappell ED Provider: Valdo Perez Home Meds and New Rx's Prescriptions: Continued fluticasone propionate [Flonase Allergy Relief] 50 mcg/actuation spray,suspension 1 spray BECKY DAILY Rx Instructions: administer into each nostril metoprolol tartrate 50 mg tablet 25 mg PO BID Patient Comments: Per Dr. Bello, Cardiology meloxicam 15 mg tablet 15 mg PO DAILY Qty: 90 3RF tramadol 50 mg tablet 50 mg PO TID PRN (Reason: pain) Qty: 60 0RF atorvastatin [Lipitor] 20 mg tablet 80 mg PO HS Patient Comments: [place]iology, [place] [facility] [place] 81 mg Tablet 81 mg PO DAILY Discontinued acetaminophen [Tylenol Extra Strength] 500 MG tablet 500 mg PO TID PRN Patient Comments: 11/01/17 no longer taking. CM Discharge Instructions Instructions: Urinary Retention in Men (ED), Cleaning Catheter Placement and Care (ED) Additional Instructions: you should be contacted with an appointment with urology if you feel more ill, have fevers or severe abdominal pain return to the emergency department Referrals: Sajan Vegas MD [ [facility]] - Medical Decision Making 68 yo male who states for one month or so has had difficulty emptying his bladder comes in because he has not been able to pass any urine since last night. Denies fevers, chills, back pain, weakness. He is caox4 on arrival speaking clearly in no distress. He has mild tenderness and fullness in the suprapubic region, I performed a bedside u/s and bladder is distended with urine, will have nursing place cleaning and send UA. He has no findings on exam or history to suggest entities such as cauda equina. pt had over a liter after cleaning was placed uneventfully by nursing, ua unremarkable. PT stable and feels much better. STable for d/c, will place on f/u list to see urology jacquelyn preferably within 1-2 weeks. Return precautions given Differential Diagnosis Differential Diagnosis: urinary retention, uti Medical Records Medical records reviewed: Yes I reviewed the patient's medical records. Lab Data Lab results reviewed: Yes I reviewed the patient's lab results. HPI General Mode of arrival: ambulatory. Date/Time Provider Initiated Documentation: 03/11/23 13:55. Limitations to Documentation: no limitations. Information obtained by: patient. History of Present Illness 68 year old M presents to the emergency department with the chief complaint of can't urinate, described as moderate, Patient started experiencing this day(s) (1) and it has been constant. No relieving factors improve symptom(s), No exacerbating factors reported . Patient notes denies chest pain and fever/chills. Patient did receive the following treatments prior to arrival, none Related Data Home Medications Medication Instructions Recorded Confirmed atorvastatin 20 mg tablet (Lipitor) 80 mg PO HS 10/17/18 03/11/23 metoprolol tartrate 50 mg tablet 25 mg PO BID 10/17/18 03/11/23 fluticasone propionate 50 1 spray intranasal DAILY 11/18/19 03/11/23 mcg/actuation nasal spray,suspension (Flonase Allergy Relief) aspirin 81 mg tablet 81 mg PO DAILY 05/19/20 03/11/23 meloxicam 15 mg tablet 15 mg PO DAILY #90 tabs 02/09/23 03/11/23 tramadol 50 mg tablet 50 mg PO TID PRN pain #60 tabs 03/03/23 03/11/23 Previous Rx's Medication Instructions Recorded meloxicam 15 mg tablet 15 mg PO DAILY #90 tabs 02/09/23 tramadol 50 mg tablet 50 mg PO TID PRN pain #60 tabs 03/03/23 Allergies Allergy/AdvReac Type Severity Reaction Status Date / Time No Known Allergies Allergy Verified 03/11/23 14:18 General Stated Complaint: Urinary KURTIS: 3 Review of Systems All systems reviewed & are unremarkable except as noted in HPI and below Constitutional Constitutional: Denies chills, Denies fever(s) and Denies weakness Cardiovascular Cardiovascular: Denies chest pain and Denies dyspnea Respiratory Respiratory: Denies cough and Denies dyspnea Gastrointestinal Gastrointestinal: Denies abdominal pain, Denies nausea and Denies vomiting Musculoskeletal Musculoskeletal: Denies joint swelling Neurologic Neurologic: Denies weakness PFSH All Active Problems Acute urinary retention (Acute) Radicular low back pain (Acute) Actinic keratosis (Acute) Metacarpophalangeal joint pain (Acute) Diverticula of colon (Acute) mild Internal and external bleeding hemorrhoids (Acute) PTSD (post-traumatic stress disorder) (Acute) Hip pain, bilateral (Acute) Alcohol dependence (Acute) 2 drinks per day Biceps tendon rupture (Acute) CAD (coronary artery disease) (Acute) Essential hypertension (Acute) Hyperlipidemia (Acute) PAD (peripheral artery disease) (Acute) Perennial allergic rhinitis with seasonal variation (Acute) Smoking history (Chronic) a. Quit age 42 after 20 pack years. Surgical History DISKECTOMY LAMINECTOMY,DISKECTOMY,ARTHRODESIS WITH BONE GRAFT;11/06/13; [place] [facility] [place] of colonoscopy (~06/26/20) L2 LAMINECTOMY 10/30/13 DR. MENDOZA AT ;FOR STENOSIS DECOMPRESSION Rotator Cuff Repair (~07/2016) LEFT SHOULDER Spinal Fusion L 4-5 LAMONECTOMY AND FUSION 04/22/09 DR. LIU Tonsillectomy AGE 7 Family History Mother No problems noted. Father , 68 Essential hypertension Heart disease Hyperlipidemia Sister No problems noted. Brother No problems noted. Brother Hypertension Hyperlipidemia Maternal Grandfather , 70+ No problems noted. Paternal Grandfather , 50 Alcohol abuse Maternal Grandmother , 90+ No problems noted. Paternal Grandmother , 90+ No problems noted. Son No problems noted. Son No problems noted. Daughter No problems noted. Daughter No problems noted. Social History Smoking/Tobacco Use Status: Former Tobacco Use Quit Date: 05/22/03 Tobacco: How many years used: 25 Smoking risk assessment performed?: Yes Alcohol Intake: current Alcohol Intake frequency: 3 or more drinks per day Alcohol type: hard liquor Drug use: Rarely Substance use type: does not use Caregiver/Support person: No Household members: spouse Housing: house Communication Needs: None Do you need help understanding health information?: Never Pets and animals: Yes Pets and animals: cat(s) Sexually active: Yes Do you think of yourself as: straight/heterosexual Current gender identity: male What is your relationship status?: How often do you talk on the phone with friends or family?: twice per week How often do you get together with friends or relatives?: twice per week How often do you attend sikh or amish services?: decline to answer Do you belong to any clubs or organized social groups?: decline to answer Panel score (0-1 are the most socially isolated patients): 2 What type of physical activity do you participate in: walking and other Details: Stretching Duration: 15-30 minutes/day Frequency: daily Adriana/Sabianism: No preference Special adriana needs: No Seatbelt use: sometimes Helmet use: Yes Helmet use: sometimes 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 Do you feel safe at home: Yes Do you feel safe in your relationship?: Yes Exam Const General: no acute distress Orientation: alert HENMT Head: normal to inspection Ears: external ears normal General nose exam: external nose normal Mouth: moist mucous membranes Eyes General: appearance normal, both eyes and all related structures Neck Neck: normal visual inspection Resp Effort & Inspection: normal respiratory effort and able to speak in complete sentences Cardio Rate: regular rate GI Palpation: nontender Back/Spine/Pelvis Back: no CVA tenderness Skin General skin exam: no rashes or lesions noted Neuro General: patient alert and patient oriented x3 Extrem General: normal to inspection Psych Mental Status: mental status grossly normal Course Vital Signs Vital signs: Vital Signs Pulse 125 H 03/11/23 14:14 Respiratory Rate 18 03/11/23 14:14 Blood Pressure 169/116 H 03/11/23 14:14 Pulse Oximetry 99 03/11/23 14:14 Pulse 125 H 03/11/23 14:14 Respiratory Rate 18 03/11/23 14:14 Blood Pressure 169/116 H 03/11/23 14:14 Blood Pressure Position Sitting 03/11/23 14:14 Pulse Oximetry 99 03/11/23 14:14 Oxygen Delivery Method Room Air 03/11/23 14:14 Oxygen Flow Rate 0 03/11/23 14:14 Pain Level 0 03/11/23 14:14
[2023-03-11 15:35] LABS: Bilirubin Negative (Negative); Blood Negative (Negative); Clarity Clear (Clear); Glucose Negative (Negative); Ketones Trace mg/dL (Negative); Leukocyte Esterase Negative (Negative); Nitrite Negative (Negative); Urobilinogen 0.2 mg/dL (Up to 0.2); pH 6.5 (5-8)
--- NOTE | 2023-03-11 16:00 | NUR.NOTE ---
Referral sent to Urology for Urinary Retention. Would like them to be seen as soon as possible.
== END 2023-03-11 16:19 | disposition home or self-care (01) ==
PROVIDERS: Emergency Provider Emergency Medicine; PCP Nurse Practitioner Family
DX: R33.8 Other retention of urine (principal)
CPT/HCPCS: 51702; 99284; 81003; 99283

== ENCOUNTER 2023-04-12 16:51 | Emergency (ER) | payer MEDICARE, BC, SELFPAY ==
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
--- NOTE | 2023-04-12 16:45 | DI.RAD_ITS ---
Exam(s) XR SHOULDER RT COMPLETE 2+V EXAM: XR SHOULDER RT COMPLETE 2+V CLINICAL HISTORY: pain, fall. TECHNIQUE: 2D digital imaging was performed of the right shoulder. Five images were obtained. AP, Grashey, Y-view and axillary views were obtained. COMPARISON: CR CHEST 2 VIEWS PA,LAT from 12/16/[address] CHEST LUNG CANCER SCREEN from 01/27/2023 FINDINGS: BONES: No acute fracture is present. No bony destructive lesion is seen. There are old healed right r ib fractures. JOINTS: No dislocation present. Degenerative changes are seen at the acromioclavicular joint. The gl enohumeral joint is well maintained. SOFT TISSUE: There is an old calcification adjacent to the acromion. Soft tissue calcifications are seen adjacent to the glenoid. IMPRESSION: No acute fracture or dislocation is present. DATA REPOSITORY: RADIATION DOSE DELIVERED:
[2023-04-12 16:50] VITALS: BP 165/94; PULSE 82; RESP 18; TEMP 36.9; O2SAT 98
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
--- NOTE | 2023-04-19 12:42 | NUR.NOTE ---
Accessed pt chart to print provider notes for [facility] billing. Nursing Note:
== END 2023-04-12 18:38 | disposition home or self-care (01) ==
PROVIDERS: Emergency Provider Physician Assistant; PCP Nurse Practitioner Family
DX: S90.32XA Contusion of left foot, initial encounter; S40.011A Contusion of right shoulder, initial encounter; V09.20XA Pedestrian injured in traffic accident involving unspecified motor vehicles, initial encounter; Y93.89 Activity, other specified; Y92.481 Parking lot as the place of occurrence of the external cause; I25.10 Atherosclerotic heart disease of native coronary artery without angina pectoris; I10 Essential (primary) hypertension; E78.5 Hyperlipidemia, unspecified; Z79.82 Long term (current) use of aspirin; Z79.899 Other long term (current) drug therapy
CPT/HCPCS: 00123; 29515; 99283; 73030; 73630

== ENCOUNTER → 2023-05-10 10:52 | Outpatient (BNVA) | payer MEDICARE, BC, SELFPAY | PROVIDERS: PCP Nurse Practitioner Family; Referring Provider Nurse Practitioner Family; Visit Provider Student in an Organized Health Care Education/Training Program | DX: M75.101 Unspecified rotator cuff tear or rupture of right shoulder, not specified as traumatic (principal) | CPT/HCPCS: 99213 ==

== ENCOUNTER → 2023-06-05 02:26 | Outpatient (CLI) | payer MEDICARE, BC, SELFPAY ==
--- NOTE | 2023-06-05 07:30 | DI.MRI_ITS ---
Exam(s) MR UPPER JOINT RT WO EXAM: MR UPPER JOINT RT WO CLINICAL HISTORY: R SHOULDER PAIN,RT ROTATOR CUFF TEAR,M75.101. TECHNIQUE: Multiplanar multisequence MRI was performed. COMPARISON: None. FINDINGS: BONES: There is no fracture or contusion pattern. JOINTS:The acromioclavicular joint shows mild inferior spurring. Small amount of fluid at AC joint. The glenohumeral joint is normal. TENDONS: Supraspinatus: An partial tear anteriorly and distally. Infraspinatus: Edema and muscle. Some fluid tracking adjacent to tendon but no visible tear. Subscapularis: Unremarkable. Teres Minor: Unremarkable. Biceps and [place]: Unremarkable. MUSCLES: Edema in infraspinatus muscle. GLENOID LABRUM: Unremarkable on this noncontrast examination. SOFT TISSUES: Unremarkable. OTHER: Subacromial and subdeltoid bursae shows a small amount of fluid. . IMPRESSION: Partial tear distal supraspinatus tendon. Edema in infraspinatus muscle out visible tendon tear. DATA REPOSITORY:
== END ==
PROVIDERS: PCP Nurse Practitioner Family; Visit Provider Student in an Organized Health Care Education/Training Program
DX: M75.111 Incomplete rotator cuff tear or rupture of right shoulder, not specified as traumatic (principal)
CPT/HCPCS: 73221

== ENCOUNTER → 2023-06-13 13:24 | Outpatient (BNVA) | payer MEDICARE, BC, SELFPAY | PROVIDERS: PCP Nurse Practitioner Family; Referring Provider Nurse Practitioner Family; Visit Provider Student in an Organized Health Care Education/Training Program | DX: M75.101 Unspecified rotator cuff tear or rupture of right shoulder, not specified as traumatic (principal) | CPT/HCPCS: 99213 ==

== ENCOUNTER 2023-06-15 13:44 | Outpatient (REF) | payer MEDICARE, BC, SELFPAY ==
[2023-06-15 22:21] LABS: Bilirubin Negative (Negative); Blood Negative (Negative); Clarity Turbid (Clear); Glucose Negative (Negative); Ketones Negative (Negative); Leukocyte Esterase Negative (Negative); Nitrite Positive (Negative); Specific Gravity 1.025 (1.005-1.025); Urobilinogen 0.2 mg/dL (Up to 0.2); pH 5.5 (5-8)
[2023-06-15 22:30] LABS: Bacteria Many HPF (Negative); C & S Indicated? Yes; Casts Negative LPF (Negative); Crystals Negative HPF (Negative); Epithelial Cells Negative HPF (Negative); Mucus Negative (Negative); RBC Negative HPF (0-2)
== END 2023-06-15 13:45 | disposition home or self-care (01) ==
LOC: LBN 13:44
PROVIDERS: PCP Nurse Practitioner Family; Visit Provider Nurse Practitioner Family
DX: N31.8 Other neuromuscular dysfunction of bladder (principal); R82.998 Other abnormal findings in urine
CPT/HCPCS: 87077; 81003; 81015; 87086; 87186

== ENCOUNTER 2023-07-20 21:26 | Outpatient (REF) | payer MEDICARE, BC, SELFPAY ==
[2023-07-20 21:40] LABS: Bilirubin Negative (Negative); Blood Negative (Negative); Clarity Sl Cloudy (Clear); Glucose Negative (Negative); Ketones Negative (Negative); Leukocyte Esterase Trace (Negative); Nitrite Positive (Negative); Urobilinogen 0.2 mg/dL (Up to 0.2)
[2023-07-20 21:45] LABS: Bacteria Many HPF (Negative); C & S Indicated? Yes; Casts Negative LPF (Negative); Crystals Negative HPF (Negative); Epithelial Cells Negative HPF (Negative); Mucus Negative (Negative); RBC Negative HPF (0-2)
== END 2023-07-20 21:27 | disposition home or self-care (01) ==
LOC: LBN 21:26
PROVIDERS: PCP Nurse Practitioner Family; Visit Provider Nurse Practitioner Family
DX: R82.998 Other abnormal findings in urine (principal)
CPT/HCPCS: 87077; 81003; 81015; 87086; 87186

== ENCOUNTER 2023-07-31 17:27 | Outpatient (REF) | payer MEDICARE, BC, SELFPAY ==
[2023-07-31 21:14] LABS: Bilirubin Negative (Negative); Blood Negative (Negative); Clarity Cloudy (Clear); Glucose Negative (Negative); Ketones Negative (Negative); Leukocyte Esterase Small (Negative); Nitrite Positive (Negative); Specific Gravity 1.025 (1.005-1.025); Urobilinogen 0.2 mg/dL (Up to 0.2)
[2023-07-31 21:23] LABS: WBC >50 HPF (0-5)
[2023-07-31 21:24] LABS: Bacteria Many HPF (Negative); C & S Indicated? Yes; Casts Negative LPF (Negative); Crystals Negative HPF (Negative); Epithelial Cells Negative HPF (Negative); Mucus Negative (Negative); RBC Negative HPF (0-2)
== END 2023-07-31 17:28 | disposition home or self-care (01) ==
LOC: LBN 17:27
PROVIDERS: PCP Nurse Practitioner Family; Visit Provider Nurse Practitioner Family
DX: R30.0 Dysuria (principal)
CPT/HCPCS: 87077; 81003; 81015; 87086; 87186

== ENCOUNTER 2023-09-26 19:03 | Outpatient (REF) | payer MEDICARE, BC, SELFPAY | END 2023-09-26 19:04 | disposition home or self-care (01) | LOC: LBN 19:03 | PROVIDERS: PCP Nurse Practitioner Family; Visit Provider Physician Assistant | DX: R33.9 Retention of urine, unspecified (principal); B96.89 Other specified bacterial agents as the cause of diseases classified elsewhere | CPT/HCPCS: 87086 ==

== ENCOUNTER 2024-01-23 04:45 | Outpatient (CLI) | payer MEDICARE, BC, SELFPAY ==
[2024-01-23 18:42] LABS: Calculated LDL 48 mg/dL (<100); Cholesterol 144 mg/dL (<200); Estimated GFR 83.01 (mL/min/1.73m2); HDL Cholesterol 70 mg/dL (40-60); Potassium 3.8 mmol/L (3.5-5.1); Triglyceride 133 mg/dL (<150)
[2024-01-24 18:11] LABS: PSA, Screening 0.6 ng/mL (<=4.5)
== END 2024-01-23 04:46 | disposition home or self-care (01) ==
PROVIDERS: PCP Nurse Practitioner Family; Visit Provider Nurse Practitioner Family
DX: Z12.5 Encounter for screening for malignant neoplasm of prostate (principal); Z13.220 Encounter for screening for lipoid disorders; E78.2 Mixed hyperlipidemia; I10 Essential (primary) hypertension
CPT/HCPCS: 36415; 80061; 84153; 82565; 84132

== ENCOUNTER 2024-02-01 01:59 | Outpatient (CLI) | payer MEDICARE, BC, SELFPAY ==
--- NOTE | 2024-02-01 16:00 | DI.US_ITS ---
Exam(s) US AAA SCREENING EXAM: US AAA SCREENING CLINICAL HISTORY: screening, tobacco abuse COMPARISON: No exams were available for comparison FINDINGS: Abdominal Aorta: Proximal: 1.5 cm Mid: 1.9 x 1.4 cm Distal: 2.4 cm Iliacs: Right: 1.3 cm Left: 1.3 cm IMPRESSION: No evidence of abdominal aortic aneurysm. DATA REPOSITORY:
== END 2024-02-01 02:19 ==
PROVIDERS: PCP Nurse Practitioner Family; Visit Provider Nurse Practitioner Family
DX: Z13.6 Encounter for screening for cardiovascular disorders (principal)
CPT/HCPCS: 76706

== ENCOUNTER 2024-02-01 03:31 | Outpatient (CLI) | payer MEDICARE, BC, SELFPAY ==
[2024-02-01 10:31] LABS: C-Reactive Protein < 0.50 mg/dL (<or=0.5)
[2024-02-01 18:04] LABS: Rheumatoid Factor <8.6 IU/mL (<12.0)
== END 2024-02-01 03:32 | disposition home or self-care (01) ==
LOC: LBO 03:31
PROVIDERS: PCP Nurse Practitioner Family; Visit Provider Nurse Practitioner Family
DX: M19.90 Unspecified osteoarthritis, unspecified site (principal)
CPT/HCPCS: 76706; 86140; 86431

== ENCOUNTER 2024-04-10 10:57 | Outpatient (CLI) | payer MEDICARE, BC, SELFPAY ==
--- NOTE | 2024-04-10 09:15 | DI.RAD_ITS ---
Exam(s) XR THUMB RT EXAM: XR THUMB RT CLINICAL HISTORY: pain RT THUMB, M79.644 PAIN RT FINGERS. TECHNIQUE: 2D digital imaging was performed. Three views. COMPARISON: No exams were available for comparison FINDINGS: BONES: No acute fracture is present. No bony destructive lesion is seen. JOINTS: No dislocation present. Mild narrowing of the interphalangeal joint space of the thumb. Mil d periarticular spurring. Mild degenerative changes also noted at the 1st metacarpophalangeal joint and 1st carpal metacarpal joint. More severe degenerative changes are noted at the 3rd metacarpophal angeal joint. Mild degenerative changes are seen in the remaining interphalangeal joints. SOFT TISSUE: Vascular calcifications are noted in the wrist. IMPRESSION: Mild degenerative changes of the interphalangeal metacarpophalangeal joints of the thumb. DATA REPOSITORY: RADIATION DOSE DELIVERED:
== END 2024-04-10 11:17 ==
LOC: DI 10:57
PROVIDERS: PCP Nurse Practitioner Family; Visit Provider Anesthesiology Pain Medicine
DX: M79.644 Pain in right finger(s) (principal)
CPT/HCPCS: 73140

== ENCOUNTER 2024-04-30 10:20 | Outpatient (CLI) | payer MEDICARE, BC, SELFPAY ==
[2024-04-30 10:29] VITALS: BP 137/84; PULSE 62; RESP 20; TEMP 36.7; O2SAT 99
--- NOTE | 2024-04-30 10:31 | PDOC.PAIN ---
Date of service: 04/30/24 Time of Service: 11:08 Pain Managment Procedure Note Procedure Note Procedure Note: ?Sacroiliac Joint Steroid Injection ? Location: ? Right SI Joint? Pre-procedure Diagnosis: Sacroiliitis, not elsewhere classified - M46.1 ? Post-procedure Diagnosis:? The same as above ? Sedation:? NONE ? Medication: Depo-Medrol 40 mg, bupivacaine 0.5% 1 mL, Omnipaque 0.25 mL per joint ? Estimated blood loss:? less than 2 cc ? Surgeon:? Marshall Walker MD ? COMMENT: THIS WILL BE BOTH DIAGNOSTIC AND THERAPEUTIC ? Procedure Detail:? The procedure and potential risks were explained to the patient and informed written consent was obtained. The patient was escorted to the procedure room and placed in the prone position. Pillows were utilized for proper positioning and comfort. Time out was performed in the procedure room with nursing staff confirming the patient's identity, procedure to be performed, allergies, and any blood thinning or anti-platelet medications. The patient's lumbosacral area was prepped with ChloraPrep and draped in a sterile fashion. Sterile technique was maintained throughout the procedure.? Sterile gloves were used, a face mask was worn, and new single dose vials of all medications were used with the top being swabbed with alcohol and given time to dry prior to withdrawal of medication. Lidocaine 1% was used to anesthetize the skin. With fluoroscopic guidance, a 22-gauge 3.5 spinal needle was advanced into the posteroinferior aspect of the Right SI joint . Confirmation of intra-articular position of the needle tip was obtained with injection of 0.25cc of Omnipaque 240 contrast which showed appropriate spread within the joint.? Following negative aspiration, 40mg of methylprednisolone mixed with 1 mL of bupivacaine 0.5% was injected.? The needle was gently removed. ?The patient tolerated the procedure well and was transported to the recovery area for observation and discharge instructions.? Permanent images saved and recorded. Plan:? Follow up prn. PAIN PRE PROCEDURE 08/29 POST PROCEDURE 08/29 COMMENT: 0 % BETTER AFTER INJECTION. Pain could be coming from the L2-3 stenosis and could consider transforaminal injection at that level 1. Severe central spinal canal stenosis at L2-3 level where there is an intervertebral disc space device which extends significantly posterior to the posterior cortices of L2 and L3 with significant impingement upon the central canal-thecal sac compound by overlying bony ridging. Severe central spinal canal stenosis at this level. No evidence of discitis nor osteomyelitis at this level.
[2024-04-30 10:49] VITALS: O2SAT 99
[2024-04-30 10:50] VITALS: O2SAT 99
--- NOTE | 2024-04-30 11:00 | DI.RAD_ITS ---
Exam(s) XR PAIN CLINIC SACRIOILIAC 2V EXAM: XR PAIN CLINIC SACRIOILIAC 2V CLINICAL HISTORY: DX: Sacroiliac Dysfunction. TECHNIQUE: Fluoroscopy was provided for the referring physician for guidance with performing pain cl inic injection procedure. COMPARISON: No exams were available for comparison FINDINGS: Please see procedure note for details. Fluoro time: 19.3 seconds RADIATION DOSE DELIVERED: Ka,r=7.3 mGy
[2024-04-30] MEDS: Omnipaque 240 MG/ML 50 ML BTL IJ (11:03)
[2024-04-30] MEDS: methylPREDNISolone ACETATE 80 MG/ML VIAL IJ (11:03)
[2024-04-30] MEDS: Bupivacaine 0.5% Pres-Free 10 ML VIAL IJ (11:05)
[2024-04-30] MEDS: Nerve Block Tray 1 EACH MC (11:05)
== END 2024-04-30 10:21 | disposition home or self-care (01) ==
LOC: PC 10:20
PROVIDERS: PCP Nurse Practitioner Family; Visit Provider Anesthesiology Pain Medicine
DX: M54.50 Low back pain, unspecified (principal); M46.1 Sacroiliitis, not elsewhere classified
CPT/HCPCS: 00123; 27096; 72200; J0665; J1010; Q9967

== ENCOUNTER 2024-05-13 07:36 | Outpatient (CLI) | payer MEDICARE, BC, SELFPAY ==
--- NOTE | 2024-05-13 06:00 | DI.RAD_ITS ---
Exam(s) XR PAIN CLINIC FLUORO JOINT IN EXAM: XR PAIN CLINIC FLUORO JOINT IN CLINICAL HISTORY: Dx: Arthritis of carpometacarpal joint. TECHNIQUE: Fluoroscopy was provided for the referring physician for guidance with performing pain cl inic injection procedure. COMPARISON: No exams were available for comparison FINDINGS: Please see procedure note for details. Fluoro time: 11.5 seconds RADIATION DOSE DELIVERED: Kar=0.2 mGy
[2024-05-13 07:48] VITALS: BP 143/96; PULSE 68; RESP 18; TEMP 37.1; O2SAT 98
[2024-05-13 08:05] VITALS: O2SAT 96
[2024-05-13 08:10] VITALS: O2SAT 98
--- NOTE | 2024-05-13 08:16 | PDOC.PAIN_ITS ---
Date of service: 05/13/24 Time of Service: 08:30 Pain Managment Procedure Note Procedure Note Procedure Note: Intra-articular Joint Injection of Steroid ? Location: Right first carpal metacarpal joint ? Pre-procedure Diagnosis: M18 first carpometacarpal joint with arthritis ? Post-procedure Diagnosis:? The same as above ? Sedation:? ? None ? Estimated blood loss:? less than 2 cc ? Surgeon:? Marshall Walker MD ? Procedure Detail:? The patient verbalized understanding of risks and signed written consent to proceed with right diagnostic, therapeutic intra- articular CMC joint injection.? The patient was taken to the block suite.? The patient was placed in the sitting position.? Pillows were used for proper patient positioning and comfort.? Time out was performed in the procedure room with nursing staff confirming the patient's identity, procedure to be performed, allergies, and any blood thinning or anti-platelet medications.? The skin overlying the right hand/wrist was prepped with ChloraPrep and draped in a sterile fashion. Sterile gloves were used, a face mask was worn, and new single dose vials of all medications were used with the top being swabbed with alcohol and given time to dry prior to withdrawal of medication. A/P fluoroscopic view was utilized to identify the target site. With fluoroscopic assistance, using a 25g needle the joint space was entered with ease. Injection of 0.125 cc of Omnipaque 240 contrast revealed appropriate spread within the joint capsule in the AP view.? Aspiration was performed and negative for blood or fluid.? This was followed by 20 mg of methylprednisolone mixed with 0.25cc?s of 0.5% bupivacaine.? The needle was then gently removed.? The patient was taken to recovery in stable condition without complication. Permanent images saved and recorded. Plan:? Follow up in three weeks to assess response to treatment. COMMENT:f/u prn PAIN: PRE PROCEDURE 07/29 POST PROCEDURE 07/29
[2024-05-13] MEDS: Omnipaque 240 MG/ML 50 ML BTL IJ (08:18)
[2024-05-13] MEDS: Nerve Block Tray 1 EACH MC (08:18)
[2024-05-13] MEDS: Bupivacaine 0.5% Pres-Free 10 ML VIAL IJ (08:19)
[2024-05-13] MEDS: methylPREDNISolone ACETATE 80 MG/ML VIAL IJ (08:19)
== END 2024-05-13 07:37 | disposition home or self-care (01) ==
LOC: PC 07:36
PROVIDERS: PCP Nurse Practitioner Family; Visit Provider Anesthesiology Pain Medicine
DX: M19.041 Primary osteoarthritis, right hand (principal); M79.641 Pain in right hand
CPT/HCPCS: 00123; 20600; 77002; J0665; J1010; Q9967

== ENCOUNTER 2024-09-26 12:24 | Outpatient (CLI) | payer MEDICARE, BC, SELFPAY ==
--- NOTE | 2024-09-26 06:00 | DI.RAD_ITS ---
Exam(s) XR PAIN CLINIC FLUORO JOINT IN EXAM: XR PAIN CLINIC FLUORO JOINT IN CLINICAL HISTORY: DX: Arthritis of Carpometacarpal joint TECHNIQUE: 2D and realtime digital imaging was performed. CONTRAST MATERIAL: Refer to procedure report. COMPARISON: No exams were available for comparison FINDINGS: Fluoroscopy was provided for Dr. Stephens during the performance of a 1st carpometacarpal joint injectio n. Please refer to the procedure report for complete details. Ka,r=0.45 mGy IMPRESSION: RADIATION DOSE DELIVERED: 0.0 0.0 0
[2024-09-26 12:35] VITALS: BP 140/72; PULSE 46; RESP 18; TEMP 36.7; O2SAT 99
[2024-09-26 12:59] VITALS: PULSE 56; O2SAT 98
[2024-09-26 13:00] VITALS: PULSE 56; O2SAT 95
[2024-09-26 13:10] VITALS: PULSE 52; O2SAT 99
[2024-09-26] MEDS: Omnipaque 240 MG/ML 50 ML BTL IJ (13:15)
[2024-09-26] MEDS: Nerve Block Tray 1 EACH MC (13:15)
[2024-09-26] MEDS: methylPREDNISolone ACETATE 80 MG/ML VIAL IJ (13:15)
--- NOTE | 2024-09-26 14:30 | PDOC.PAIN_ITS ---
Date of service: 09/26/24 Time of Service: 14:00 Pain Managment Procedure Note Procedure Note Procedure Note: INTRA-ARTICULAR RIGHT FIRST CARPOMETACARPAL JOINT INJECTION Gregg Alvarez has been referred to the [facility] Management [facility] for intra-articular right first carpometacarpal (CMC) joint injection. COMMENTS: He last had this procedure on 05/13/2024 with >50% pain relief for >3 months. Dx: Right 1st carpometacarpal joint osteoarthritis Pain: 7/10 pre-procedure pain VAS Patient was interviewed and the medical record reviewed. There were no medical, pharmacologic, radiographic or other structural contraindications to attempting fluoroscopically guided intra-articular right first CMC joint injection. Risks and expected side effects as well as potential benefit of the procedure were reviewed and voiced concerns addressed. The printed consent form was signed and witnessed. Standard time-out procedure was performed. Patient was placed in the seated position with his arms in front of him on the fluoroscopy table and automated blood pressure cuff and pulse oximeter applied. The skin entry point for approaching the right CMC joint was identified under the most advantageous fluoroscopic view and marked. Following thorough Chlorhexadine preparation of the skin and draping and 1% lidocaine infiltration of the skin entry point and subcutaneous tissues, a 25 gauge 1.5 spinal needle was placed under fluoroscopic guidance into right first CMC joint. Intra- articular placement was confirmed by a clear arthrogram resulting from the injection of 0.1ml Omnipaque 240. 0.5ml of Depomedrol (80 mg/cc) followed by 0.5 cc of 2% Lidocaine were injected intra-articularily with an initial reproduction of a significant component of the usual pain. Vital signs were stable throughout the procedure and were as recorded in the docflowsheet by the nursing staff. If given, dosages of intravenous drugs for anxiolysis and analgesia were documented in MAR. Follow up plans and appointments were discussed. Post procedure instruction was given as documented in nursing documentation and having met discharge criteria,was discharged from the [facility] Management [facility]. COMMENTS: Post-procedure pain VAS was 0/10. Steve Stephens DO, MPH [facility]-Pain Managment [facility] CC: Williams Chappell NP Coding Conscious Sedation used for procedure: No CPT Codes: Fluoroscopic guidance (non spine inj.) - 04412 ([id number] ~G) Inj,Bursa/Tendon Intermed (not SI) - ([id number] ~G) RIGHT Additional Codes: Date of Service (53069) Date of service: 09/26/24
== END 2024-09-26 12:25 | disposition home or self-care (01) ==
LOC: PC 12:25
PROVIDERS: PCP Nurse Practitioner Family; Visit Provider Preventive Medicine Occupational Medicine
DX: M18.31 Unilateral post-traumatic osteoarthritis of first carpometacarpal joint, right hand (principal); M79.644 Pain in right finger(s)
CPT/HCPCS: 20605; 77002; J1010; Q9967

== ENCOUNTER 2025-03-26 14:48 | Outpatient (CLI) | payer MEDICARE, BC, SELFPAY ==
[2025-03-26 23:42] LABS: PSA, Screening 0.6 ng/mL (<=4.5)
== END 2025-03-26 14:49 | disposition home or self-care (01) ==
LOC: LBO 04-22 14:49
PROVIDERS: PCP Nurse Practitioner Family; Visit Provider Student in an Organized Health Care Education/Training Program
DX: Z12.5 Encounter for screening for malignant neoplasm of prostate (principal)
CPT/HCPCS: 36415; 84153

== ENCOUNTER 2025-04-02 11:58 | Outpatient (CLI) | payer MEDICARE, BC, SELFPAY ==
--- NOTE | 2025-04-02 06:00 | DI.RAD_ITS ---
Exam(s) XR PAIN CLINIC FLUORO JOINT IN EXAM: XR PAIN CLINIC FLUORO JOINT IN CLINICAL HISTORY: DX: Arthritis of Carpometacarpal joint. TECHNIQUE: Fluoroscopy was provided for the referring physician for guidance with performing pain clinic injection procedure. COMPARISON: No exams were available for comparison FINDINGS: Please see procedure note for details. Fluoro time: 13.4 seconds RADIATION DOSE DELIVERED: Carmenr=0.4 mGy
[2025-04-02 12:08] VITALS: BP 122/85; PULSE 60; RESP 16; TEMP 37.2; O2SAT 98
--- NOTE | 2025-04-02 12:33 | PDOC.PAIN ---
Date of service: 04/02/25 Time of Service: 12:33 Pain Managment Procedure Note Procedure Note Procedure Note: PROCEDURE NOTE RIGHT INTRA-ARTICULAR FIRST METACARPOPHALANGEAL JOINT INJECTION Date of Service: April 02, 2025 Patient: Gregg Alvarez Provider: Steve Stephens DO, MPH COMMENTS: I previously evaluated the patient in the office and their symptoms in relation to the sacroiliac joint pain have remained the same. Pre-operative diagnosis: Right first metacarpophalangeal joint arthritis ICD-10 M18.11 Post-operative diagnosis: Same Pre-procedure pain: VAS= 3/10 Gregg Alvarez has been referred to our [facility] for a Right intra-articular Metacarpophalangeal joint injection. Gregg was interviewed and the medical record reviewed. There were no medical, pharmacologic, radiographic or other structural contraindications to attempting a fluoroscopically-guided, contrast-enhanced, intra-articular right first metacarpophalangeal joint injection. The risks, benefits, and potential side effects of this procedure were reviewed with the patient. Questions and concerns were addressed. After it was clear that Gregg was fully informed about the procedure, the printed consent form was signed by the patient and myself. Gregg was placed in the seated position with his right hand on the fluoroscopy table and an automated blood pressure cuff, 3 lead EKG, and pulse oximeter were applied. The skin entry point for approaching the Right right first metacarpophalangeal joint was identified under the most advantageous fluoroscopic view and marked. Following thorough Chlorhexadine preparation of the skin and draping with sterile surgical drapes, 2 mls of 1% lidocaine was infiltrated into the skin at the entry point and the surrounding subcutaneous tissues. Next, a 1.5 25G spinal needle was placed under fluoroscopic guidance into the Right right first metacarpophalangeal joint. Intra-articular placement was confirmed by a clear arthrogram resulting from the injection of 0.25ml of Omnipaque-240. Next, 0.5 ml of Depo- Medrol 40 mg/ml was injected intra-articularly with an initial reproduction of a significant component of the usual pain. This was followed with 1 ml of 1% Lidocaine. The needle was then removed without difficulty. (49 ml of Omnipaque-240 was wasted). Gregg's vital signs were stable throughout the procedure and were as recorded in nursing records. Follow up plans and appointments were discussed with Gregg. Post procedure instructions were given as documented in nursing records. Having met discharge criteria, Gregg was discharged from the [facility]. COMMENTS: Post-procedure pain: VAS= 2/10. If the patient receives at least 50% improvement in pain and/or function for at least 3 months, this procedure can be repeated if needed. I personally performed this entire procedure. STEVE STEPHENS DO, MPH [employer]BP[employer]-subspecialty board certification in Pain Medicine [facility]-Center for [facility] Management Coding Conscious Sedation used for procedure: No CPT Codes: Inj,Bursa/Tendon w/US Small - 14498 ([id number] ~G) Fluoroscopic guidance (non spine inj.) - 52841 ([id number] ~G) Additional Codes: Date of Service () Diagnoses: Right first carpometacarpal joint osteoarthritis
[2025-04-02 13:00] VITALS: PULSE 55; O2SAT 97
[2025-04-02] MEDS: methylPREDNISolone ACETATE 40 MG/ML VIAL IJ (13:00)
[2025-04-02] MEDS: Nerve Block Tray 1 EACH MC (13:02)
[2025-04-02] MEDS: Omnipaque 240 MG/ML 50 ML BTL IJ (13:02)
== END 2025-04-02 11:59 | disposition home or self-care (01) ==
LOC: PC 11:58
PROVIDERS: PCP Nurse Practitioner Family; Visit Provider Preventive Medicine Occupational Medicine
DX: M79.644 Pain in right finger(s) (principal); M18.11 Unilateral primary osteoarthritis of first carpometacarpal joint, right hand
CPT/HCPCS: 20604; 77002; J1010; Q9967

== ENCOUNTER 2025-05-20 00:25 | Outpatient (CLI) | payer MEDICARE, BC, SELFPAY ==
[2025-05-20 15:26] LABS: AST 22 U/L (<34); Cholesterol 91 mg/dL (<200); HDL Cholesterol 37 mg/dL (>or=40)
== END 2025-05-20 00:26 | disposition home or self-care (01) ==
PROVIDERS: PCP Nurse Practitioner Family; Visit Provider Internal Medicine Cardiovascular Disease
DX: E78.2 Mixed hyperlipidemia (principal)
CPT/HCPCS: 36415; 80061; 84450